=== PATIENT | female | born 1945 | race Caucasian/White ===

== ENCOUNTER → 2024-05-31 13:05 | Outpatient (REF) | payer MEDICARE, OTHER, SELFPAY | LOC: RAD 13:05 | PROVIDERS: ATTENDING PHYSICIAN Internal Medicine Gastroenterology; FAMILY PHYSICIAN Family Medicine | DX: K58.0 Irritable bowel syndrome with diarrhea (principal) | CPT/HCPCS: 74018 ==

== ENCOUNTER → 2024-06-01 11:43 | Outpatient (REF) | payer MEDICARE, OTHER, SELFPAY | LOC: REG 11:43 | PROVIDERS: ATTENDING PHYSICIAN Internal Medicine Gastroenterology | DX: K58.0 Irritable bowel syndrome with diarrhea (principal) | CPT/HCPCS: 82653; 82705; 87045; 87046; 87324; 87328; 87329; 87427; 87449; 89055 ==

== ENCOUNTER 2024-06-03 14:57 | Observation (INO) | payer MEDICARE, OTHER, SELFPAY ==
[2024-06-03] VITALS (10 sets, daily range): BP systolic 74–116; BP diastolic 47–94; PULSE 64–81; BMI 16.6; BMI 16.7
[2024-06-03] MEDS: NSS 1000 IV (11:55)
[2024-06-03 12:02] LABS: % Basophils 0.4 % (0-2); % Eosinophils 0.1 % (0-6); % Immature Granulocytes 0.4 % (0-0.5); % Lymphocytes 14.9 % (20.5-51.1); % Monocytes 6.5 % (1.7-9.3); % Neutrophils 77.7 % (42.2-75.2); Absolute Monocytes 0.4 10^3/uL (0.1-0.6); Absolute Neutrophils 5.3 10^3/uL (1.4-6.5); Hematocrit 36.6 % (37.0-47.0); Hemoglobin 12.9 g/dL (12.0-16.0); Mean Corp Hgb Conc. 35.2 g/dL (33.0-37.0); Mean Corpuscular Hgb 33.4 pg (27.0-31.0); Mean Corpuscular Volume 94.8 fL (81.0-99.0); Mean Platelet Volume 9.8 fL (7.4-10.4); Nucleated Red Blood Cells % 0 %; Platelet Count 236 10^3/uL (130-400); Red Blood Cell Count 3.86 10^6/uL (4.20-5.40); Red Cell Dist. Width 12.3 % (11.5-14.5); White Blood Cell Count 6.8 10^3/uL (4.8-10.8)
[2024-06-03 12:23] LABS: Lactic Acid 0.8 mmol/L (0.7-2.0)
[2024-06-03 12:26] LABS: ALT (SGPT) < 10 U/L (0-35); AST (SGOT) 20 U/L (14-36); Albumin 4.1 g/dl (3.5-5.0); Alkaline Phosphatase 53 U/L (38-126); Blood Urea Nitrogen 17 mg/dl (7-17); Calcium 9.3 mg/dl (8.4-10.2); Carbon Dioxide 21 mmol/L (22-30); Chloride 102 mmol/L (98-107); Estimated Creatinine Clearance 34 ml/min; Glucose 76 mg/dl (70-99); Lipase 119 U/L (23-300); Potassium 3.6 mmol/L (3.5-5.1); Sodium 139 mmol/L (135-145); Total Bilirubin 0.6 mg/dl (0.2-1.3); Total Protein 6.5 g/dl (6.3-8.2); eGFR 57.66
--- NOTE | 2024-06-03 13:52 | ED.GENMED ---
History of Present Illness
General
Chief Complaint: Abdominal Symptoms
Source: patient, spouse and family
Time Seen by Provider: 06/03/24 11:01
History of Present Illness
History of Present Illness:
This 79-year-old female presents with her and brother reporting persistent and constant diarrhea over the last 2 weeks. Patient is seen in [facility] emergency department x 2. She has had a CT and plain films. She also saw
gastroenterology and had stool studies that are so far negative. Patient has lost 10 to 20 pounds and is not eating anything over the last 1 week. She has not drinking. Family states she actually was so weak she could not get up and fell once.
No injuries. She does report her stools have been very dark. Denies abdominal pain. No nausea or vomiting. Has had a little bit of loss of appetite but is afraid to eat because it induces such severe diarrhea. No recent antibiotic use. No
recent travel. No sick contacts
Past History
Past History
ED Past Medical History: Psychiatric (Anxiety) and Other (Mild dementia)
ED Past Surgical History: None
Social History
Tobacco: Non-smoker
Alcohol: None
Personal:
Living: with family
Phy Exam
Physical Exam
Physical Exam:
CONSTITUTIONAL Patient alert and oriented to person, place. Well-appearing. Vital signs reviewed.
HEAD atraumatic, normocephalic.
EYES eyelids normal to inspection, Pupils equally round and reactive to light, Extraocular muscles intact, Conjunctiva normal, Sclera normal.
NECK normal range of motion, Trachea midline, no jugular venous distention.
RESPIRATORY CHEST No respiratory distress noted, Chest expansion equal, Bilateral breath sounds clear.
CARDIOVASCULAR regular rate and rhythm, Heart sounds normal.
ABDOMEN abdomen nontender, Bowel sounds normal. No distention.
BACK normal inspection, no obvious deformities
UPPER EXTREMITY range of motion normal, Motor strength normal, no cyanosis, no edema.
LOWER EXTREMITY range of motion normal, Motor strength normal, no cyanosis, no edema.
NEURO Speech normal, No focal motor deficits, Nicci coma scale 15, Cranial Nerves intact to screening exam.
SKIN skin warm, dry, and normal in color.
Course
Orders/Labs/Results
Orders:
Orders
06/03/24 11:28
Urinalysis Reflex To Culture Urgent
06/03/24 11:29
Orthostatic VS- Treatment ONCE
0.9% Sodium Chloride 1000 ml [Nss] 1,000 ml IV BOLUS
06/03/24 11:50
Complete Blood Count/With Diff Urgent
Comprehensive Metabolic Panel Urgent
Lactic Acid Urgent
Lipase Urgent
Abnormal Lab Results
06/03/24
11:50
RBC 3.86 L 10^6/uL
(4.20-5.40)
Hct 36.6 L %
(37.0-47.0)
MCH 33.4 H pg
(27.0-31.0)
Absolute Lymphs (auto) 1.0 L 10^3/uL
(1.2-3.4)
Neutrophils % 77.7 H %
(42.2-75.2)
Lymphocytes % 14.9 L %
(20.5-51.1)
Carbon Dioxide 21 L mmol/L
(22-30)
06/03/24 11:50
06/03/24 11:50
Vital Signs
Initial and Last Documented VS:
Initial Vital Signs
Temp Pulse Resp BP Pulse Ox
97.7 F 86 17 116/82 97
06/03/24 09:55 06/03/24 09:55 06/03/24 09:55 06/03/24 09:55 06/03/24 09:55
Last Documented Vital Signs
Temp Pulse Resp BP Pulse Ox
97.7 F 64 20 115/94 99
06/03/24 09:55 06/03/24 13:45 06/03/24 12:00 06/03/24 13:00 06/03/24 13:45
MDM/Problems Addressed
MDM/Problems Addressed:
Diarrhea, dehydration, orthostasis, weakness
*Pulse Oximetry
Patient hypoxic: no
*Critical Care Note
Total Time (30-74mins, 75-104mins- exclusive of procedures): Not Applicable
Data Reviewed
Review of Other/Old Records Reveals: Labs (Outpatient stool culture reviewed and thus far neg) and Radiology Studies (Patient brought her outpatient CT report that was reviewed)
Source: patient and family
Prescriptions/Medications Considered But Not Given:
Considered antibiotics but so far cultures of the stool negative
Patient Management
Discussion with other providers: Hospitalist
Escalation/DeEscalation of care consider admission/obs:
Persistence of symptoms. Patient presents with persistent diarrhea. Now does drop her blood pressure when she stands and is weak. Given the persistence and recurrent visits to the emergency department, admit for close monitoring, IV fluids and GI
consultation.
ED Attending Note
-
Portions of this chart may have been created with voice recognition software.� Occasional wrong word or��sound alike� substitutions may have occurred due to the inherent limitations of voice recognition software.
Discharge Plan
Departure
Patient Disposition: Admit
Date of Disposition: 06/03/24
Time of Disposition: 13:53
Admit to: Med/Surg
Presentation/result/management discussed w/ accepting MD/DO: Hospitalist
Discharge Problem:
Diarrhea, Orthostasis, Weakness
Prescriptions:
No Action
gabapentin 100 MG capsule
300 mg PO HS
risedronate 35 MG tablet,delayed release (DR/EC)
35 mg PO Q7D
Rx Instructions:
takes every tuesday AM
ferrous sulfate [FeroSul] 325 MG tablet
325 mg PO DAILY
Align
0 PO DAILY
donepezil [Aricept] 10 mg Tablet
10 mg PO DAILY
Rx Instructions:
in AM
famotidine 20 mg Tablet
20 mg PO BID Qty: 60 0RF
dexamethasone 4 mg tablet
4 mg PO DIRECTED Qty: 14 0RF
Rx Instructions:
4 mg tab 3x daily X2-day, then 4 mg bid X2 day, then 4 mg daily X2 days,then 1/2 tablet daily x2 days, then stop
Referrals:
Mari Chatterjee DO [Family Provider] -
Interventions
Interventions:
*Risk Screen - Suicide Last Done: 06/03/24 09:54
*General Assessment Last Done: 06/03/24 09:54
*Neglect/Abuse Screening Last Done: 06/03/24 09:54
ED- Fall Risk Assessment Last Done: 06/03/24 12:00
*ED COVID-19 Vaccine History Last Done: 06/03/24 09:54
HJ-Cejxxb-Zxugrpreva Assessment Last Done: 06/03/24 11:39
Discharge Date and Time
Print Language: SALVADOREAN
--- NOTE | 2024-06-03 14:29 | HPS.HSE ---
Family Physician
-
Family Physician: Mari Chatterjee
Chief Complaint
-
Persistent diarrhea
History of Present Illness
Pleasant 79-year-old female with history osteoporosis, IBS, mild dementia who lives at home with her , this is her third visit to the ER in the middle of couple of weeks for persistent diarrhea.
She is awake, alert and oriented x 3 and able to provide detailed information her was here earlier in the left, she has been in [facility] emergency department couple of times and had extensive workup including CT abdominal pelvis and plain
x-rays and stool workup then several negative. Also she has been following up with retail interior designer locally.
Admit to diarrhea is persistent throughout the day without any warning sign like any cramping pain or any nausea or vomiting or any fever or chill or cough or congestion according to the patient she spent most of the time in the bathroom.
Denies taking any stool softener or laxative.
Afraid to eat anything because go to ER right away, but the stool is greenish and dark in color.
Denies any fever or chill or cough or congestion.
Denies any recent travel or sick contact or camping and ate on home well water denies sick contact or antibiotic intake or change in medications.
In the ER she looks dry and lethargic look like pressure dropped at the try to get her out, given some fluid and chest pressure is better, she she is not in distress.
Patient admits she did have this issue for a few years including October 2022 the Last Colonoscopy Was 3 Years Ago According to the Patient Basically Was Negative.
Denies Any Bleeding Event or Taking Any NSAIDs.
Medical History
Past Medical History
Past Medical History: Reports Other
Additional Past Medical History:
Past medical history reviewed:
Disorder
Mild dementia
Osteopenia osteoporosis
IBS
Social history: Lives with her , denies smoking and drinking white wine few nights a week.
Family history: Reviewed and noncontributory
Past Surgical History: Reports Other
Social History
Unable to obtain full social history at this time due to: Other
Family History
Family History: Other
Allergies / Home Medications
Allergies reflects when Allergies were last updated in [facility].
Home Medications with original date entered in [facility]
Allergy/Medication List:
Allergies
Allergy/AdvReac Type Severity Reaction Status Date / Time
tetracycline [Tetracycline] Allergy yeast Verified 06/03/24 09:54
infection
Home Medications
risedronate 35 mg tablet,delayed release 35 mg PO TU OSTEOPOROSIS 08/15/20
donepezil 10 mg tablet (Aricept) 10 mg PO DAILY MEMORY 07/11/23
cyanocobalamin (vitamin B-12) 1,000 mcg tablet 3,000 mcg PO DAILY 06/03/24
gabapentin 300 mg capsule 300 mg PO HS 06/03/24
memantine 10 mg tablet 10 mg PO BID 06/03/24
midodrine 10 mg tablet 10 mg PO BID@0800,1200 06/03/24
primidone 50 mg tablet 50 mg PO HS 06/03/24
turmeric 400 mg capsule 1,500 mg PO DAILY 06/03/24
Review of Systems
-
A 12 point ROS was completed and negative except as noted: Yes
Physical Exam
Vital Signs
Vital Signs
Temp Pulse Resp BP Pulse Ox
97.7 F 64 20 115/94 99
06/03/24 09:55 06/03/24 14:00 06/03/24 12:00 06/03/24 13:00 06/03/24 14:00
Physical exam:
General: Awake, alert and oriented x3, lethargic and dry looking but not in distress and holds appropriate conversation.
HEENT: No active discharge, ecchymosis or bruising, moist lips, tongue and mucous membrane.
Eyes: No discharge or red conjunctiva, no nystagmus, pupils are reactive and equal
Neck:Supple, no JVD no bruit no goiter.
Respiratory: Normal AP contour and diameter, normal chest wall movement, normal respiratory effort, no respiratory distress,
Lungs: Good air entry bilaterally, no wheezing or rhonchi, no rales or crackles
Heart: S1, S2 regular, normal rate, no added sound.
Gastrointestinal: Positive bowel sounds, soft, nontender, no guarding or rigidity or organomegaly
Musculoskeletal: , no chest wall abnormality or tenderness. All joints and extremities have good range of motion, no muscle tenderness or any joint swelling or tenderness.
Extremities: No pitting edema, good peripheral pulses, good range of motion
Skin: Warm and dry, no ulceration, normal color.
Neurological: Awake, alert and oriented x3, no facial droop, speech clear and comprehensive, good muscle tone, normal sensory and motor function
Psychiatric: Normal mood, normal thought and judgment, normal affect,
Physical Exam
Respiratory: Other
Laboratory Results
-
06/03/24 11:50
06/03/24 11:50
Laboratory Results
Lactic Acid 0.8 mmol/L (0.7-2.0) 06/03/24 11:50
Total Bilirubin 0.6 mg/dl (0.2-1.3) 06/03/24 11:50
AST 20 U/L (14-36) 06/03/24 11:50
ALT < 10 U/L (0-35) 06/03/24 11:50
Alkaline Phosphatase 53 U/L (38-126) 06/03/24 11:50
Lipase 119 U/L (23-300) 06/03/24 11:50
Data Reviewed
-
Lab Data: Labs Reviewed by me and Discussed with Patient
Old Records: Reviewed
Impression/Plan
-
IMPRESSION:
79-year-old female presented to our ER as this is her third visit to ER in the last week for the same issue suppressant diuretic. Went to [facility] emergency department already had extensive workup she had a copy of the workup including CT showed
no abnormalities.
Persistent diarrhea, infectious versus functional diarrhea while other causes may need to be considered include inflammatory bowel disease. Had colonoscopy 3 years ago therefore hypersecretory polyps possibility but unlikely.
Dehydration
Hypotension, resolved
Mild metabolic acidosis
History of IBS
History of orthostatic hypotension
Mild dementia
PLAN:
Full liquid diet and advance as tolerated
Ringer lactate
Orthostatic vital sign check
Repeat stool workup including C. difficile, ova and parasite,
GI consult and defer further workup to GI
Continue her midodrine
Continue Namenda
Continue gabapentin at the bedside
Aricept
Cholesterol hydration.
All discussed with the patient and expressed understanding
Discussed with the ER physician
CODE STATUS full code
DVT prophylaxis Lovenox
[2024-06-03 16:48] LABS: Magnesium 1.9 mg/dl (1.6-2.3)
[2024-06-03] MEDS: LR 1000 IV (16:56)
[2024-06-03] MEDS: LOVENOX 40 MG SC (18:13)
[2024-06-03] MEDS: NAMENDA 10 MG PO (20:56)
[2024-06-03] MEDS: MYSOLINE 50 MG PO (20:56)
[2024-06-03] MEDS: NEURONTIN 300 MG PO (20:56)
[2024-06-04] MEDS: LR 1000 IV ×2 (03:05→12:26)
--- NOTE | 2024-06-04 06:52 | CON.GI ---
Addendum entered and electronically signed by Arielle Gandara MD 06/04/24 16:23:
I saw and examined the patient.
The [employer] or PA's note was reviewed and I agree with the note.
Comment:
Pt with a history of IBS, fatty liver, intermittent diarrhea since November who is followed in our office and has had a negative workup at other outside institutions including CT scans, and abdominal imaging. She has had negative celiac workup and
negative biopsies for microscopic colitis. She does not have any acute exacerbation of her symptoms but states that it occurs after she eats. She does seem forgetful when answering questions. Does eat cheese and hasn't modified dieet
abd: soft, nontender
impression:
chronic diarrhea: ?functional
plan:
xray done
stool studies
quantify stool
lactose free diet
can try trials of imodium, cholestyramine or xifaxin depending on above results
Original Note:
Consultation
-
Date/Time Consultation Requested: 06/03/24 1400
Date/Time Consultation Performed: 06/04/24 0700
Requesting Provider: Gurwinder Beebe MD
Performing Provider: TESSIE Pineda, Arielle Gandara MD
Reason for Consultation: diarrhea
Medical History
Chief Complaint / HPI
Chief Complaint: diarrhea
History of Present Illness:
Pt is a 79yo with hx IBS, depression, osteoporosis, hypercholesterolemia, colon polyps, fatty liver with persistent diarrhea for last 2 weeks and may have had intermittent diarrhea since November. She has been at [facility] ER x [address] and abd
imaging. Prior review of chart with work up with Dr. Hinojosa in past with neg celiac and neg bx for microscopic colitis. She has been treated with Xifaxan in past with improvement. She denies any recent travel abx or sick contacts. she was
recently seen by Dr. Hinojosa 05/31 for similar symptoms and recommended stool studies, abd Xray, pancreatic elastase and fecal fat. She now presents with worsening diarrhea for evaluation.
In reviewing with patient admits to diarrhea in past. She recall worsening symptom a few months ago then last 2 weeks worse. She states + BM's after each meal and some night stools though no stools last PM per nursing. She denies any diet
change, travel, abx or sick contacts. Prior colonoscopy 2021 with neg microscopic colitis. She denies dysphagia, GERd, vomiting, abdominal pain, blood or black in stools. + wt loss last 2 weeks with diarrhea.
Past Medical History
Past Medical History: Hypercholesterolemia, Psychiatric (mild dementia, anxiety, depression, osteoposis, colon polyps, osteoporosis, anemia ) and Other (osteoporosis, IBS, scoliosis, diverticulosis, anemia, fatty liver, colon polyps, )
Past Surgical History: Other (finger surgery, cyst behind knee removal)
Social History
Tobacco: Non-Smoker
Alcohol: Daily (1 drink daily)
Drug: None
Personal:
Living: With Family
Employment: Retired
Family History
Family History: Other (no family hx colon CA or polyps)
Allergies / Home Medications
Allergy/AdvReac Type Severity Reaction Status Date / Time
tetracycline [Tetracycline] Allergy yeast Verified 06/03/24 09:54
infection
�Medication �Instructions �Recorded
risedronate 35 mg tablet,delayed 35 mg PO TU OSTEOPOROSIS 08/15/20
release
donepezil 10 mg tablet (Aricept) 10 mg PO DAILY MEMORY 07/11/23
cyanocobalamin (vitamin B-12) 3,000 mcg PO DAILY 06/03/24
1,000 mcg tablet
gabapentin 300 mg capsule 300 mg PO HS 06/03/24
memantine 10 mg tablet 10 mg PO BID 06/03/24
midodrine 10 mg tablet 10 mg PO BID@0800,1200 06/03/24
primidone 50 mg tablet 50 mg PO HS 06/03/24
turmeric 400 mg capsule 1,500 mg PO DAILY 06/03/24
Review of Systems
-
Unable to obtain full review of systems at this time due to: Dementia
History Source: Patient
Constitutional: Reports Weight Loss (with diarrhea ) and Other (feeling cold)
EENT: Reports No Symptoms
Respiratory: Reports No Symptoms
Cardiac: Reports No Symptoms
Abdomen/GI: Reports Diarrhea
: Reports No Symptoms
Musculoskeletal: Reports No Symptoms
Skin: Reports No Symptoms
Neurological: Reports Weakness
Endocrine: Reports No Symptoms
Hematologic/Lymphatic: Reports No Symptoms
Vital Signs
Temp Pulse Resp BP Pulse Ox
98.2 F 68 16 113/65 98
06/03/24 23:24 06/03/24 23:24 06/03/24 23:24 06/03/24 23:24 06/03/24 23:24
Physical Exam
Exam
General: Well Developed, Well Nourished and No Apparent Distress
HEENT: Normocephalic and Anicteric
Respiratory: Clear
Cardiac: Regular Rhythm
GI: Soft and Non Distended
Musculoskeletal: No Clubbing and No Cyanosis
Skin: Warm and Dry
Neuro: Awake, Alert and AO x 3
Psych: Calm
Results
WBC 6.8 10^3/uL (4.8-10.8) 06/03/24 11:50
Hgb 12.9 g/dL (12.0-16.0) 06/03/24 11:50
Hct 36.6 % (37.0-47.0) L 06/03/24 11:50
MCV 94.8 fL (81.0-99.0) 06/03/24 11:50
Plt Count 236 10^3/uL (130-400) 06/03/24 11:50
Absolute Neuts (auto) 5.3 10^3/uL (1.4-6.5) 06/03/24 11:50
Sodium 139 mmol/L (135-145) 06/03/24 11:50
Potassium 3.6 mmol/L (3.5-5.1) 06/03/24 11:50
Chloride 102 mmol/L (98-107) 06/03/24 11:50
Carbon Dioxide 21 mmol/L (22-30) L 06/03/24 11:50
BUN 17 mg/dl (7-17) 06/03/24 11:50
Creatinine 1.0 mg/dL (0.6-1.0) 06/03/24 11:50
Calcium 9.3 mg/dl (8.4-10.2) 06/03/24 11:50
Total Bilirubin 0.6 mg/dl (0.2-1.3) 06/03/24 11:50
AST 20 U/L (14-36) 06/03/24 11:50
ALT < 10 U/L (0-35) 06/03/24 11:50
Alkaline Phosphatase 53 U/L (38-126) 06/03/24 11:50
Lipase 119 U/L (23-300) 06/03/24 11:50
Diagnostic Image Results:
05/31/24 abd X ray
1. Mild air distention of most of the colon.
2. Contrast material in the descending colon, sigmoid colon, and rectum.
3. Severe diverticulosis in the sigmoid colon.
4. Severe multilevel discogenic degenerative disease in the lumbar spin
Prior GI Procedures:
EGD: 08/2022- [facility] - No gross lesions in the entire esophagus.
- Z-line regular, 38 cm from the incisors.
- Small hiatal hernia.
- Erythematous mucosa in the antrum. Biopsied.
- Normal examined duodenum. Biopsied.
bx neg metaplasia, neg H pylori no lymphcytes
Colonoscopy: 08/2022 [facility] - The examined portion of the ileum was normal.
- Tortuous colon.
- Normal mucosa in the entire examined colon. Biopsied.
- Two 1 to 2 mm polyps in the rectum, removed with a
jumbo cold forceps. Resected and retrieved.
- Diverticulosis in the sigmoid colon.
bx HP polyp melanosis coli, neg acute or colangenous colitis
Assessment / Plan
-
Pt is a 79yo with hx IBS, depression, osteoporosis, hypercholesterolemia, colon polyps with persistent diarrhea for last 2 weeks and may have had intermittent diarrhea since November. She has been at [facility] ER x [address] and abd imaging.
Prior review of chart with work up with Dr. Hinojosa in past with neg celiac and neg bx for microscopic colitis. She has been treated with Xifaxan in past with improvement. She denies any recent travel abx or sick contacts. she was recently
seen by Dr. Hinojosa 05/31 for similar symptoms and recommended stool studies, abd Xray and pancreatic elastase and fecal fat. She now presents with worsening diarrhea for evaluation.
-diarrhea
-hx IBS diarrhea with prior improvement with Xifaxan
- hx colon polyp
-hypokalemia
other med problems:
-depression
-osteoporosis
-hypercholesterolemia
-colon polyps
PLAN:
Etiology of diarrhea related to IBS-D as noted in past , infectious etiology, panc insufficiency vs other
await stool studies
trend diarrhea and output
abd film as noted
replete K per hospitalist
increased to low residue/low lactose diet
if stool neg consider trial of Xifaxan with improvement in past
reviewed with spouse no new medication or diet change
will follow
-
-
Thank you for consultation and allowing me to participate in the patient's care. Please call the cleaning validation consultant GI physician during the after hours with any questions or concerns.
[2024-06-04 07:40] VITALS: BP 118/59
[2024-06-04 08:13] LABS: % Basophils 0.3 % (0-2); % Eosinophils 0.6 % (0-6); % Immature Granulocytes 0.5 % (0-0.5); % Lymphocytes 20.1 % (20.5-51.1); % Monocytes 6.8 % (1.7-9.3); % Neutrophils 71.7 % (42.2-75.2); Absolute Lymphocytes 1.2 10^3/uL (1.2-3.4); Absolute Monocytes 0.4 10^3/uL (0.1-0.6); Absolute Neutrophils 4.4 10^3/uL (1.4-6.5); Hematocrit 35.1 % (37.0-47.0); Hemoglobin 12.4 g/dL (12.0-16.0); Mean Corp Hgb Conc. 35.3 g/dL (33.0-37.0); Mean Corpuscular Hgb 33.2 pg (27.0-31.0); Mean Corpuscular Volume 93.9 fL (81.0-99.0); Mean Platelet Volume 10.3 fL (7.4-10.4); Nucleated Red Blood Cells % 0 %; Platelet Count 233 10^3/uL (130-400); Red Blood Cell Count 3.74 10^6/uL (4.20-5.40); Red Cell Dist. Width 12.2 % (11.5-14.5); White Blood Cell Count 6.2 10^3/uL (4.8-10.8)
--- NOTE | 2024-06-04 08:31 | W.PN.HOSP.TC ---
Today's Communication/Plan
-
Replace and monitor potassium
Appreciate GI
Assessment / Plan
Assessment / Plan
Physical Exam
General: Not in acute distress
HEENT: Normocephalic
Neck: Supple
Lungs: Clear to Auscultation Bilaterally
Heart: S1, S2 regular, normal rate
Gastrointestinal: Positive bowel sounds, soft, nontender
Extremities: No cyanosis
Skin: Warm and dry
Neurological: Awake, alert and oriented x3, no facial droop, speech clear and comprehensive, good muscle tone, normal sensory and motor function
Psychiatric: Calm

Assessment/Plan
IMPRESSION:
79-year-old female presented to our ER with persistent diarrhea.
Persistent diarrhea, infectious versus functional diarrhea while other causes may need to be considered include inflammatory bowel disease. Had colonoscopy 3 years ago therefore hypersecretory polyps possibility but unlikely.
Dehydration
Hypokalemia
Hypotension, resolved
Mild metabolic acidosis
History of IBS
History of orthostatic hypotension
Mild dementia
PLAN:
Patient has been having persistent diarrhea for the last 2-week, had a couple visit to different emergeny rooms, although workup is negative.
Replace and monitor potassium
Full liquid diet and advance as tolerated
IV Fluids
Orthostatic vital sign check
Repeat stool workup including C. difficile, ova and parasite,
GI consulted, appreciate evaluation and recommendations
Continue her midodrine
Continue Namenda
Continue gabapentin at the bedside
Aricept
CODE STATUS full code
DVT prophylaxis Lovenox
Anticipated Discharge: 24 - 48 hours
Subjective/Interval History
-
Date of Service: June 04, 2024
Patient was seen and examined. She reported no new symptoms since she came in, still having diarrhea.
Objective Data
-
Labs:
Laboratory Results
06/04/24
07:06
WBC 6.2
Hgb 12.4
Hct 35.1 L
Plt Count 233
Sodium Pending
Potassium Pending
Chloride Pending
Carbon Dioxide Pending
BUN Pending
Creatinine Pending
Glucose Pending
Calcium Pending
Vital Signs:
Vital Signs
Temp Pulse Resp BP Pulse Ox
98.2 F 68 16 113/65 98
06/03/24 23:24 06/03/24 23:24 06/03/24 23:24 06/03/24 23:24 06/03/24 23:24
I&O
06/03/24 06/04/24 06/05/24
06:59 06:59 06:59
Intake Total 1200 / 1200
Balance 1200 / 1200
[2024-06-04 08:56] LABS: Blood Urea Nitrogen 10 mg/dl (7-17); Calcium 8.7 mg/dl (8.4-10.2); Carbon Dioxide 27 mmol/L (22-30); Chloride 103 mmol/L (98-107); Estimated Creatinine Clearance 57 ml/min; Glucose 77 mg/dl (70-99); Magnesium 1.7 mg/dl (1.6-2.3); Potassium 3.1 mmol/L (3.5-5.1); Sodium 137 mmol/L (135-145); eGFR > 60.00
[2024-06-04] MEDS: NAMENDA 10 MG PO ×2 (09:02→19:09)
[2024-06-04] MEDS: ARICEPT 10 MG PO (09:02)
[2024-06-04] MEDS: ProAmatine 10 MG PO ×2 (09:02→12:37)
[2024-06-04 09:48] LABS: Vitamin B12 > 1000 pg/ml (239-931)
[2024-06-04 13:13] VITALS: BMI 16.7
[2024-06-04] MEDS: KCL 40 MEQ PO (14:08)
--- NOTE | 2024-06-04 14:19 | CM ---
Reviewed the chart notes and spoke with the patient in the room. The patient is being admitted under observational status [facility] letter provided and explained. The patient had no questions with regards to the letter.
The patient resides in an independent apartment at [facility]. The patient reports no DME/VN/SNF. The patient did not know which pharmacy she would use for short term medications, usually does mail order. CM continues to be available
to patient/family and is monitoring medical plan for needs at discharge.
Plan: Discharge to home when medically stable. No needs anticipated.
[2024-06-04 15:35] VITALS: BP 126/70
[2024-06-04] MEDS: LOVENOX 40 MG SC (18:06)
[2024-06-04 18:24] LABS: Blood Urea Nitrogen 6 mg/dl (7-17); Calcium 8.8 mg/dl (8.4-10.2); Carbon Dioxide 27 mmol/L (22-30); Chloride 102 mmol/L (98-107); Estimated Creatinine Clearance 57 ml/min; Glucose 135 mg/dl (70-99); Potassium 3.3 mmol/L (3.5-5.1); Sodium 137 mmol/L (135-145); eGFR > 60.00
[2024-06-04 19:55] LABS: Hepatitis C Antibody Negative (Negative)
[2024-06-04 21:39] LABS: Urine Albumin Negative (Neg - Trace); Urine Bilirubin Negative (Negative); Urine Character Clear (Clear); Urine Color Yellow; Urine Glucose Negative (Negative); Urine Ketone 2+ (Negative); Urine Leukocyte 2+ (Negative); Urine Nitrite Negative (Negative); Urine Occult Blood Negative (Negative); Urine Urobilinogen Negative (Neg - 1+)
[2024-06-04 21:45] LABS: Urine Bacteria Few (Negative); Urine Red Blood Cell 0-2 /HPF (0-2)
[2024-06-04] MEDS: NEURONTIN 300 MG PO (21:47)
[2024-06-04] MEDS: MYSOLINE 50 MG PO (21:49)
[2024-06-04 22:52] VITALS: BP 127/71; BP 131/73; BP 93/54; PULSE 67; PULSE 69; PULSE 82
[2024-06-05] VITALS (7 sets, daily range): BP systolic 85–142; BP diastolic 54–76; PULSE 63–77
[2024-06-05] MEDS: ProAmatine 10 MG PO ×2 (08:32→13:37)
[2024-06-05] MEDS: NAMENDA 10 MG PO ×2 (08:33→20:30)
[2024-06-05] MEDS: ARICEPT 10 MG PO (08:33)
[2024-06-05 08:44] LABS: Hematocrit 34.4 % (37.0-47.0); Hemoglobin 12.4 g/dL (12.0-16.0); Mean Corpuscular Hgb 34.3 pg (27.0-31.0); Mean Platelet Volume 9.9 fL (7.4-10.4); Platelet Count 216 10^3/uL (130-400); Red Blood Cell Count 3.62 10^6/uL (4.20-5.40); White Blood Cell Count 4.4 10^3/uL (4.8-10.8)
--- NOTE | 2024-06-05 08:54 | W.PN.GI.CBS2 ---
Today's Communication / Plan
-
Started questran BID
Remeron QHS
GI will sign off, OP FU with Dr Hinojosa
Assessment / Plan
-
Pt is a 79yo with hx IBS, depression, osteoporosis, hypercholesterolemia, colon polyps with persistent diarrhea for last 2 weeks and may have had intermittent diarrhea since November. She has been at [facility] x [address] and abd imaging.
Prior review of chart with work up with Dr. Hinojosa in past with neg celiac and neg bx for microscopic colitis. She has been treated with Xifaxan in past with improvement. She denies any recent travel abx or sick contacts. she was recently
seen by Dr. Hinojosa 05/31 for similar symptoms and recommended stool studies, abd Xray and pancreatic elastase and fecal fat. She now presents with worsening diarrhea for evaluation.
Impression
- Functional diarrhea
Stool studies negative
EGD/colon done in 2021 without cause found
- hx colon polyp
- hypokalemia
- dementia
-depression
-osteoporosis
-hypercholesterolemia
-colon polyps
Recommendations
- AXR without bowel obstruction
- Start questran BID
- C/w low residue diet, add oral supplements
- Start remeron QHS for appetite, component of poor appetite may be related to dementia
At this juncture no new recommendations, GI will sign off please call for questions
She can FU with Dr Hinojosa outpatient basis.
Subjective
Subjective
Date of Service: June 05, 2024
She denies abd pain, nausea/vomiting. She ordered toast and coffee this AM for breakfast
Objective
Data Reviewed
Laboratory Data:
Laboratory Results
06/05/24 08:19
Laboratory Results
Magnesium 1.7 mg/dl (1.6-2.3) 06/04/24 07:06
Total Bilirubin 0.6 mg/dl (0.2-1.3) 06/03/24 11:50
AST 20 U/L (14-36) 06/03/24 11:50
ALT < 10 U/L (0-35) 06/03/24 11:50
Alkaline Phosphatase 53 U/L (38-126) 06/03/24 11:50
Lipase 119 U/L (23-300) 06/03/24 11:50
Vital Signs and I&O:
Vital Signs
Temp Pulse Resp BP Pulse Ox
97.9 F 67 16 113/59 98
06/05/24 07:19 06/05/24 08:32 06/05/24 07:19 06/05/24 08:32 06/05/24 07:19
I&O
06/04/24 06/05/24 06/06/24
06:59 06:59 06:59
Intake Total 1200 / 1200 600 / 600
Output Total 600 / 600
Balance 1200 / 1200 0 / 0
Physical Exam
Physical Exam
GEN: No acute distress, conversant, pleasant
HEENT: anicteric, extraocular movements intact, clear oropharynx without exudates
GI: soft, non-distended, not tender to palpation, normal active bowel sounds, no hepatosplenomegaly
EXT: warm, well perfused, no edema bilaterally
NEURO: AAOx2 confused, non-focal
[2024-06-05 09:34] LABS: ALT (SGPT) < 10 U/L (0-35); AST (SGOT) 21 U/L (14-36); Albumin 3.6 g/dl (3.5-5.0); Alkaline Phosphatase 51 U/L (38-126); Blood Urea Nitrogen 3 mg/dl (7-17); Calcium 8.8 mg/dl (8.4-10.2); Carbon Dioxide 30 mmol/L (22-30); Chloride 99 mmol/L (98-107); Estimated Creatinine Clearance 57 ml/min; Glucose 87 mg/dl (70-99); Magnesium 1.6 mg/dl (1.6-2.3); Potassium 3.5 mmol/L (3.5-5.1); Sodium 137 mmol/L (135-145); Total Bilirubin 0.6 mg/dl (0.2-1.3); Total Protein 5.9 g/dl (6.3-8.2); eGFR > 60.00
[2024-06-05] MEDS: QUESTRAN 4 GRAM PO ×2 (10:19→20:31)
--- NOTE | 2024-06-05 13:27 | W.PN.HOSP.TC ---
Today's Communication/Plan
-
PT/OT
Placement
Medications for diarrhea and appetite started
Spoke to patient's today
Assessment / Plan
Assessment / Plan
Physical Exam
General: Not in acute distress
HEENT: Normocephalic
Neck: Supple
Lungs: Clear to Auscultation Bilaterally
Heart: S1, S2 regular, normal rate
Gastrointestinal: Positive bowel sounds, soft, nontender
Extremities: No cyanosis
Skin: Warm and dry
Neurological: Awake, alert and oriented x3, no facial droop, speech clear and comprehensive, good muscle tone, normal sensory and motor function
Psychiatric: Calm

Assessment/Plan
IMPRESSION:
79-year-old female presented to our ER with persistent diarrhea.
Functional Diarrhea
History of colon polyps
Hypercholesterolemia
Poor Appetite
Dehydration
Hypokalemia
Hypotension, resolved
Mild metabolic acidosis
History of IBS
History of orthostatic hypotension
Mild dementia
Osteoporosis
Depression
PLAN:
Patient has been having persistent diarrhea for the last 2-week, had a couple visit to different emergeny rooms, although workup is negative.
Replace and monitor potassium
Full liquid diet and advance as tolerated
IV Fluids
Orthostatic vital sign check
Repeat stool workup including C. difficile, ova and parasite,
GI consulted, appreciate evaluation and recommendations
Abdominal X-Ray showed no bowel obstruction
Started questran BID
Remeron QHS
Continue with low residue diet, Ensure High Protein TID added
Continue her midodrine
Continue Namenda
Continue gabapentin
Aricept
CODE STATUS full code
DVT prophylaxis Lovenox
Anticipated Discharge: 24 - 48 hours
Subjective/Interval History
-
Date of Service: June 05, 2024
Patient was seen and examined. She denied any new symptoms or complaints when she was seen today, but later today, her said that she had more diarrhea after lunch.
Objective Data
-
Labs:
Laboratory Results
06/05/24
08:19
WBC 4.4 L
Hgb 12.4
Hct 34.4 L
Plt Count 216
Sodium 137
Potassium 3.5
Chloride 99
Carbon Dioxide 30
BUN 3 L
Creatinine 0.5 L
Glucose 87
Calcium 8.8
Total Bilirubin 0.6
AST 21
ALT < 10
Alkaline Phosphatase 51
Vital Signs:
Vital Signs
Temp Pulse Resp BP Pulse Ox
97.9 F 67 16 113/59 98
06/05/24 07:19 06/05/24 08:32 06/05/24 07:19 06/05/24 08:32 06/05/24 07:19
I&O
06/04/24 06/05/24 06/06/24
06:59 06:59 06:59
Intake Total 1200 / 1200 600 / 600
Output Total 600 / 600
Balance 1200 / 1200 0 / 0
--- NOTE | 2024-06-05 16:10 | CM ---
Reviewed the chart notes. PT evaluation pending. Patient ambulating in hallway ad ge. CM continues to be available to patient/family and is monitoring medical plan for needs at discharge.
Plan: Discharge to home when medically stable. No needs identified at this time.
[2024-06-05] MEDS: LOVENOX 40 MG SC (18:45)
[2024-06-05] MEDS: REMERON 15 MG PO (21:06)
[2024-06-05] MEDS: NEURONTIN 300 MG PO (21:06)
[2024-06-05] MEDS: MYSOLINE 50 MG PO (21:07)
--- NOTE | 2024-06-06 04:20 | DOWNTIME ---
There was a [employer] Downtime on 06/06/2024 from 0100 to 06/06/2024 at 0255. Downtime documentation of patient's care, including medication administrations, has been reconciled in the electronic record per guidelines. Refer to the
patient's paper chart under the miscellaneous tab to see printed paper medication records and downtime forms.
[2024-06-06 06:46] LABS: Hemoglobin 12.1 g/dL (12.0-16.0); Mean Corp Hgb Conc. 35.6 g/dL (33.0-37.0); Mean Corpuscular Hgb 33.2 pg (27.0-31.0); Mean Corpuscular Volume 93.2 fL (81.0-99.0); Mean Platelet Volume 10.2 fL (7.4-10.4); Platelet Count 238 10^3/uL (130-400); Red Blood Cell Count 3.65 10^6/uL (4.20-5.40); Red Cell Dist. Width 12.3 % (11.5-14.5); White Blood Cell Count 4.8 10^3/uL (4.8-10.8)
[2024-06-06 07:15] LABS: Blood Urea Nitrogen 3 mg/dl (7-17); Calcium 9.2 mg/dl (8.4-10.2); Carbon Dioxide 32 mmol/L (22-30); Chloride 102 mmol/L (98-107); Estimated Creatinine Clearance 57 ml/min; Glucose 85 mg/dl (70-99); Magnesium 1.8 mg/dl (1.6-2.3); Potassium 3.1 mmol/L (3.5-5.1); Sodium 140 mmol/L (135-145); eGFR > 60.00
[2024-06-06 07:45] VITALS: BP 142/58
[2024-06-06] MEDS: NAMENDA 10 MG PO ×2 (08:41→20:14)
[2024-06-06] MEDS: QUESTRAN 4 GRAM PO ×3 (08:42→23:33)
[2024-06-06] MEDS: ARICEPT 10 MG PO (08:42)
[2024-06-06] MEDS: KCL 40 MEQ PO (08:42)
[2024-06-06] MEDS: ProAmatine PO (08:43)
--- NOTE | 2024-06-06 11:33 | W.PN.HOSP.TC ---
Today's Communication/Plan
-
Potassium remains low
Replace potassium
Recheck BMP
Appetite is good
Assessment / Plan
Assessment / Plan
Physical Exam
General: Not in acute distress
HEENT: Normocephalic
Neck: Supple
Lungs: Clear to Auscultation Bilaterally
Heart: S1, S2 regular, normal rate
Gastrointestinal: Positive bowel sounds, soft, nontender
Extremities: No cyanosis
Skin: Warm and dry
Neurological: Awake, alert and oriented x3, no facial droop, speech clear and comprehensive, good muscle tone, normal sensory and motor function
Psychiatric: Calm

Assessment/Plan
IMPRESSION:
79-year-old female presented to our ER with persistent diarrhea.
Functional Diarrhea
Orthostatic Hypotension
History of colon polyps
Hypercholesterolemia
Poor Appetite
Dehydration
Hypokalemia
Hypotension, resolved
Mild metabolic acidosis
History of IBS
History of orthostatic hypotension
Mild dementia
Osteoporosis
Depression
PLAN:
Patient has been having persistent diarrhea for the last 2-week, had a couple visit to different emergeny rooms, although workup is negative.
Potassium still low, continue to replace and monitor
IV Fluids
Orthostatic vital signs positive: continue Midodrine
Repeat stool workup including C. difficile, ova and parasite,
GI consulted, appreciate evaluation and recommendations
Abdominal X-Ray showed no bowel obstruction
Continue questran BID
Remeron QHS
Continue with low residue diet, Ensure High Protein TID added -- patient having good appetite and eating well
Continue her midodrine
Continue Namenda
Continue gabapentin
Aricept
CODE STATUS full code
DVT prophylaxis Lovenox
Anticipated Discharge: Within 24 hours
Subjective/Interval History
-
Date of Service: June 06, 2024
Patient was seen and examined. She reported no new symptoms or complaints. She was eating breakfast, and per the case filler she was ambulating in the hallways fine.
Objective Data
-
Labs:
Laboratory Results
06/06/24
05:44
WBC 4.8
Hgb 12.1
Hct 34.0 L
Plt Count 238
Sodium 140
Potassium 3.1 L
Chloride 102
Carbon Dioxide 32 H
BUN 3 L
Creatinine 0.6
Glucose 85
Calcium 9.2
Vital Signs:
Vital Signs
Temp Pulse Resp BP Pulse Ox
97.7 F 69 18 142/58 99
06/06/24 07:45 06/06/24 08:43 06/06/24 07:45 06/06/24 08:43 06/06/24 07:45
I&O
06/05/24 06/06/24 06/07/24
06:59 06:59 06:59
Intake Total 600 / 600 1800 / 1800
Output Total 600 / 600
Balance 0 / 0 1800 / 1800
[2024-06-06 12:30] VITALS: BP 92/53
[2024-06-06] MEDS: ProAmatine 10 MG PO (12:33)
--- NOTE | 2024-06-06 14:39 | CM ---
Reviewed the chart notes and spoke with the patient at the bedside. Per PT, no skilled needs. Ambulating ad ge in room independently. CM continues to be available to patient/family and is monitoring medical plan for needs at discharge.
Plan: Discharge to home when medically stable. No needs identified at this time.
[2024-06-06 15:41] VITALS: BP 103/52; BP 112/58; BP 79/50; PULSE 69; PULSE 73; PULSE 83
[2024-06-06 15:43] VITALS: BP 112/58
[2024-06-06] MEDS: LOVENOX 40 MG SC (17:52)
[2024-06-06] MEDS: REMERON 15 MG PO (22:07)
[2024-06-06] MEDS: NEURONTIN 300 MG PO (22:07)
[2024-06-06] MEDS: MYSOLINE 50 MG PO (22:07)
[2024-06-06 23:16] VITALS: BP 73/44; BP 90/49; BP 91/50; PULSE 70; PULSE 79; PULSE 83
[2024-06-06 23:52] LABS: Blood Urea Nitrogen 10 mg/dl (7-17); Calcium 9.8 mg/dl (8.4-10.2); Carbon Dioxide 30 mmol/L (22-30); Chloride 104 mmol/L (98-107); Estimated Creatinine Clearance 57 ml/min; Glucose 122 mg/dl (70-99); Potassium 3.8 mmol/L (3.5-5.1); Sodium 137 mmol/L (135-145); eGFR > 60.00
[2024-06-07 07:11] LABS: Hematocrit 33.3 % (37.0-47.0); Hemoglobin 11.6 g/dL (12.0-16.0); Mean Corp Hgb Conc. 34.8 g/dL (33.0-37.0); Mean Corpuscular Hgb 33.8 pg (27.0-31.0); Mean Corpuscular Volume 97.1 fL (81.0-99.0); Mean Platelet Volume 10.3 fL (7.4-10.4); Platelet Count 231 10^3/uL (130-400); Red Blood Cell Count 3.43 10^6/uL (4.20-5.40); Red Cell Dist. Width 12.5 % (11.5-14.5); White Blood Cell Count 4.8 10^3/uL (4.8-10.8)
[2024-06-07 07:34] LABS: Blood Urea Nitrogen 10 mg/dl (7-17); Calcium 9.3 mg/dl (8.4-10.2); Carbon Dioxide 31 mmol/L (22-30); Chloride 102 mmol/L (98-107); Estimated Creatinine Clearance 57 ml/min; Glucose 90 mg/dl (70-99); Magnesium 1.9 mg/dl (1.6-2.3); Potassium 3.9 mmol/L (3.5-5.1); Sodium 140 mmol/L (135-145); eGFR > 60.00
[2024-06-07 07:35] VITALS: BP 100/50
--- NOTE | 2024-06-07 08:00 | W.PN.HOSP.TC ---
Today's Communication/Plan
-
Placement pending
Assessment / Plan
Assessment / Plan
Physical Exam
General: Not in acute distress
HEENT: Normocephalic
Neck: Supple
Lungs: Clear to Auscultation Bilaterally
Heart: S1, S2 regular, normal rate
Gastrointestinal: Positive bowel sounds, soft, nontender
Extremities: No cyanosis
Skin: Warm and dry
Neurological: Awake, alert and oriented x3, no facial droop, speech clear and comprehensive, good muscle tone, normal sensory and motor function
Psychiatric: Calm

Assessment/Plan
IMPRESSION:
79-year-old female presented to our ER with persistent diarrhea.
Functional Diarrhea
Orthostatic Hypotension
History of colon polyps
Hypercholesterolemia
Poor Appetite
Dehydration
Hypokalemia
Hypotension, resolved
Mild metabolic acidosis
History of IBS
History of orthostatic hypotension
Mild dementia
Osteoporosis
Depression
PLAN:
Patient has been having persistent diarrhea for the last 2-week, had a couple visit to different emergeny rooms, although workup is negative.
Hypokalemia resolved
IV Fluids
Orthostatic vital signs positive: continue Midodrine
Repeat stool workup including C. difficile, ova and parasite,
GI consulted, appreciate evaluation and recommendations
Abdominal X-Ray showed no bowel obstruction
Continue questran BID
Remeron QHS
Continue with low residue diet, Ensure High Protein TID added -- patient having good appetite but at times still not eating, needs encouragement and knowledge that she is in medicines for diarrhea that should help so she should eat
Continue her midodrine
Continue Namenda
Continue gabapentin
Aricept
CODE STATUS full code
DVT prophylaxis Lovenox
I spoke t patient's yesterday, as well as patient's 's [id number] (who is Dr. Nunez and goes by Sandeep -- spoke to Sandeep at the request of patient and her ) -- Sandeep mentioned patient needs to go to SNF at [facility] as
she cannot function by herself in her independent living anymore.
Anticipated Discharge: 24 - 48 hours
Subjective/Interval History
-
Date of Service: June 07, 2024
Patient was seen and examined. Nurse reported that she has not eaten lunch and dinner yesterday, she mentioned she is afraid she will have diarrhea if she does.
Objective Data
-
Labs:
Laboratory Results
06/06/24 06/07/24
22:48 06:23
WBC 4.8
Hgb 11.6 L
Hct 33.3 L
Plt Count 231
Sodium 137 140
Potassium 3.8 3.9
Chloride 104 102
Carbon Dioxide 30 31 H
BUN 10 10
Creatinine 0.6 0.6
Glucose 122 H 90
Calcium 9.8 9.3
Vital Signs:
Vital Signs
Temp Pulse Resp BP Pulse Ox
99.2 F 70 16 112/58 96
06/06/24 23:17 06/06/24 15:43 06/06/24 15:43 06/06/24 15:43 06/06/24 23:17
I&O
06/06/24 06/07/24 06/08/24
06:59 06:59 06:59
Intake Total 1800 / 1800 550 / 550
Balance 1800 / 1800 550 / 550
[2024-06-07] MEDS: ProAmatine 10 MG PO ×2 (08:31→13:18)
[2024-06-07] MEDS: QUESTRAN 4 GRAM PO (08:31)
[2024-06-07] MEDS: NAMENDA 10 MG PO (08:31)
[2024-06-07] MEDS: ARICEPT 10 MG PO (08:31)
--- NOTE | 2024-06-07 10:23 | CM ---
Reviewed the chart notes and spoke with the patient and her brother at the bedside. Explained that patient does not meet qualifications for SNF. Patient to be discharged back to home. CM continues to be available to patient/family and is
monitoring medical plan for needs at discharge.
Plan: Discharge back to home. Patient's spouse will provide transportation.
--- NOTE | 2024-06-07 13:59 | W.DS.TRANS ---
DC Summary - Director Of District Office
-
Discharge Instructions:
Discharge Diagnosis/Procedures Functional Diarrhea
Orthostatic Hypotension
History of colon polyp
Hypercholesterolemia
Poor Appetite
Dehydration
Hypokalemia
Hypotension, resolved
Mild metabolic acidosis
History of IBS
History of orthostatic hypotension
Mild dementia
Osteoporosis
Depression
Diet Low Residue
Activity As tolerated
Driving Restrictions No driving
Blood Work Recheck your CBC, Magnesium and BMP with your
outpatient primary care doctor's office in the
next 1 to 5 days
Instructions: Cholestyramine Resin
Loperamide
Mirtazapine
Stand-Alone Forms:
Changes to Home Medications: Yes
Discharge Medications:
DC Medications w/original date entered in [employer]
risedronate 35 mg tablet,delayed release 35 mg PO TU OSTEOPOROSIS 08/15/20
donepezil 10 mg tablet (Aricept) 10 mg PO DAILY MEMORY 07/11/23
cyanocobalamin (vitamin B-12) 1,000 mcg tablet 3,000 mcg PO DAILY 06/03/24
gabapentin 300 mg capsule 300 mg PO HS 06/03/24
memantine 10 mg tablet 10 mg PO BID 06/03/24
midodrine 10 mg tablet 10 mg PO BID@0800,1200 06/03/24
primidone 50 mg tablet 50 mg PO HS 06/03/24
turmeric 400 mg capsule 1,500 mg PO DAILY 06/03/24
cholestyramine (with sugar) 4 gram powder for susp in a packet 4 g PO TID #60 ea 06/07/24
loperamide 2 mg capsule 2 mg PO BIDPRN PRN diarrhea #10 caps 06/07/24
mirtazapine 15 mg tablet 15 mg PO HS #30 tabs 06/07/24
Home Medication Changes
Cholestyramine, Loperamide and Mirtazapine are new medications.
Pending Results: No
Additional Pending Results:
Final results of stool studies from hospitalization
Total time spent discharging patient (in min): 38
[2024-06-07 14:57] VITALS: BP 123/59; BP 134/72; BP 89/55; PULSE 64; PULSE 68; PULSE 76
== END 2024-06-07 15:30 | disposition home or self-care (01) ==
LOC: 2 NORTH 14:57
PROVIDERS: ADMITTING PHYSICIAN Internal Medicine; ATTENDING PHYSICIAN Hospitalist; CONSULT PHYSICIAN Internal Medicine; EMERGENCY PHYSICIAN Emergency Medicine; FAMILY PHYSICIAN Family Medicine
DX: R19.7 Diarrhea, unspecified (principal); R10.9 Unspecified abdominal pain; F32.A Depression, unspecified; F03.A3 Unspecified dementia, mild, with mood disturbance; E86.0 Dehydration; E87.20 Acidosis, unspecified; K58.9 Irritable bowel syndrome, unspecified; M81.0 Age-related osteoporosis without current pathological fracture; K76.0 Fatty (change of) liver, not elsewhere classified; E87.6 Hypokalemia; E78.00 Pure hypercholesterolemia, unspecified; I95.1 Orthostatic hypotension; Z88.1 Allergy status to other antibiotic agents; Z86.010 Personal history of colon polyps
CPT/HCPCS: 80048; 80053; 81003; 81015; 82607; 83605; 83690; 83735; 84443; 85025; 85027; 86803; 87045; 87046; 87086; 87324; 87328; 87329; 87427; 87449; 89055; 96360; 97162; 97165; 99285; G0378

== ENCOUNTER 2024-06-20 18:52 | Observation (INO) | payer MEDICARE, OTHER, SELFPAY ==
[2024-06-20] VITALS (7 sets, daily range): BP systolic 113–142; BP diastolic 53–86; BMI 17.5; BMI 16.7
[2024-06-20 13:38] LABS: % Basophils 0.3 % (0-2); % Eosinophils 0.2 % (0-6); % Immature Granulocytes 0.4 % (0-0.5); % Lymphocytes 10.2 % (20.5-51.1); % Monocytes 4.8 % (1.7-9.3); % Neutrophils 84.1 % (42.2-75.2); Absolute Immature Granulocytes 0.1 10^3/uL (0-0.05); Absolute Lymphocytes 1.3 10^3/uL (1.2-3.4); Absolute Monocytes 0.6 10^3/uL (0.1-0.6); Absolute Neutrophils 10.3 10^3/uL (1.4-6.5); Hemoglobin 11.8 g/dL (12.0-16.0); Mean Corp Hgb Conc. 35.8 g/dL (33.0-37.0); Mean Corpuscular Hgb 33.3 pg (27.0-31.0); Mean Corpuscular Volume 93.2 fL (81.0-99.0); Mean Platelet Volume 9.6 fL (7.4-10.4); Nucleated Red Blood Cells % 0 %; Platelet Count 239 10^3/uL (130-400); Red Blood Cell Count 3.54 10^6/uL (4.20-5.40); Red Cell Dist. Width 12.3 % (11.5-14.5); White Blood Cell Count 12.3 10^3/uL (4.8-10.8)
[2024-06-20 14:08] LABS: ALT (SGPT) 67 U/L (0-35); AST (SGOT) 55 U/L (14-36); Albumin 4.2 g/dl (3.5-5.0); Alkaline Phosphatase 71 U/L (38-126); Blood Urea Nitrogen 10 mg/dl (7-17); Calcium 9.7 mg/dl (8.4-10.2); Carbon Dioxide 27 mmol/L (22-30); Chloride 105 mmol/L (98-107); Glucose 112 mg/dl (70-99); Lipase 125 U/L (23-300); Potassium 4.5 mmol/L (3.5-5.1); Sodium 136 mmol/L (135-145); Total Bilirubin 0.4 mg/dl (0.2-1.3); Total Protein 6.5 g/dl (6.3-8.2); eGFR > 60.00
--- NOTE | 2024-06-20 15:57 | ED.GENMED ---
History of Present Illness
General
Chief Complaint: Bowel Problem
Source: patient and spouse
Exam Limitations: none
Time Seen by Provider: 06/20/24 15:36
Nursing documentation reviewed up to this point in time: agreed with
History of Present Illness
History of Present Illness:
Patient is a 79-year-old female from [facility] with past with history depression IBS osteoporosis hypercholesteremia colon polyps who presents today for evaluation. Patient was recently admitted June 03 and discharged June 07 for recurrent
diarrhea patient that time was given IV fluids seen by GI. Patient was started on Questran and Remeron for appetite issues which were thought to be related to dementia. She was tested for celiac and was negative and negative for microscopic
colitis. reports is very weak and he is not able to take care of her. They live in independent living at [facility]. He reports she is not eating. As documented she was started on Remeron to increase her appetite however he reports
[facility] was not able to fill this until June
Past History
Past History
ED Past Medical History: Psychiatric (Anxiety) and Other (Mild dementia)
ED Past Surgical History: None
Social History
Tobacco: Non-smoker
Alcohol: None
Personal:
Living: with family
Review of Systems
Review of Systems
Allergies reviewed?: Yes
Unable to obtain full review of systems at this time due to: dementia
Other source history: family
All Other Systems: ROS reviewed and negative except as documented in HPI and ROS
Constitutional: Reports fatigue; Denies fever
EENT: Reports no symptoms
Respiratory: Reports no symptoms
Cardiac: Reports no symptoms
ABD/GI: Reports abdominal pain, diarrhea and other ( since patient did complain of abdominal pain at home she denies now +dec appetite ); Denies nausea or vomiting
: Reports no symptoms
Musculoskeletal: Reports no symptoms
Skin: Reports no symptoms
Neurological: Reports no symptoms
Psychiatric: Reports no symptoms
Phy Exam
General Physical Exam
General Presentation: well appearing
General age: appears stated age
General Skin: warm and dry
General Habitus: normal
General Mental: alert
General Hydration: appears well hydrated
Cardiovascular Exam
Cardiovascular Exam: regular rate/rhythm, no murmur and normal peripheral pulses
Pulmonary Exam
Pulmonary Exam: lungs clear and no respiratory distress
Neurological Exam
Neurological Exam: alert and oriented x3
Musculoskeletal Exam
Musculoskeletal Exam: full ROM
Skin Exam
Skin Exam: normal color and warm/dry
Psychiatric Exam
Psychiatric Exam: normal mood/affect
Course
Orders/Labs/Results
Orders:
Orders
06/20/24 13:29
Complete Blood Count/With Diff Urgent
Comprehensive Metabolic Panel Urgent
Lipase Urgent
06/20/24 16:13
Straight cath- Treatment ONCE
06/20/24 17:21
0.9% Sodium Chloride 500 ml [Nss] 500 ml IV BOLUS
06/20/24 17:25
UA Reflex to Culture [Urinalysis Reflex To Culture] Urgent
Date Specimen was Collected: 06/20/24
Time Specimen was Collected: 17:16
Urine Microscopic Reflex Cult Urgent
Urine Culture Urgent
BARRY Source: U
Specimen Description:
Date Specimen was Collected: 06/20/24
Time Specimen was Collected: 17:16
06/20/24 18:15
Admit/Transfer Patient As Directed
Co-Sign Provider:
Level of Care: Observation services
Assign to:: Medical/Surgical
Physician / Group: lianne
Diagnosis: failure to thrive
06/20/24 18:16
Code Status As Directed
Resuscitation Status: Full Code
Abnormal Lab Results
06/20/24 06/20/24
13:29 17:25
WBC 12.3 H 10^3/uL
(4.8-10.8)
RBC 3.54 L 10^6/uL
(4.20-5.40)
Hgb 11.8 L g/dL
(12.0-16.0)
Hct 33.0 L %
(37.0-47.0)
MCH 33.3 H pg
(27.0-31.0)
Abs Immat Gran (auto) 0.1 H 10^3/uL
(0-0.05)
Absolute Neuts (auto) 10.3 H 10^3/uL
(1.4-6.5)
Neutrophils % 84.1 H %
(42.2-75.2)
Lymphocytes % 10.2 L %
(20.5-51.1)
Glucose 112 H mg/dl
(70-99)
AST 55 H U/L
(14-36)
ALT 67 H U/L
(0-35)
Urine Ketones Trace A
(Negative)
Ur Occult Blood Reflex Trace A
(Negative)
Leukocyte Esterase Rfl Trace A
(Negative)
Urine Bacteria (Reflex) Moderate A
(Negative)
06/20/24 13:29
06/20/24 13:29
Vital Signs
Initial and Last Documented VS:
Initial Vital Signs
Temp Pulse Resp BP Pulse Ox
97.9 F 70 18 136/61 99
06/20/24 13:22 06/20/24 13:22 06/20/24 13:22 06/20/24 13:22 06/20/24 13:22
Last Documented Vital Signs
Temp Pulse Resp BP Pulse Ox
97.9 F 64 15 113/57 97
06/20/24 13:22 06/20/24 18:00 06/20/24 18:00 06/20/24 18:00 06/20/24 18:00
MDM/Problems Addressed
Differential Diagnosis Includes:
Not limited to diarrhea electrolyte abnormality dehydration dementia
MDM/Problems Addressed:
Patient is a 79-year-old female with dementia chronic diarrhea irritable bowel who was brought back to the ER for continued diarrhea. Patient was admitted June 03 June 07 seen by GI had an unremarkable workup started on Questran for diarrhea
however this has not given her relief. reports she is very weak. there is also component of dementia and she was prescribed Remeron to assist with appetite she is not eating. reports [facility] was not able to fill this prescription as
they did not have it. Patient does not feel that he can take care of her at home. Case management did see patient and patient will not be able to be placed in skilled rehab tonight. She has normal renal function we will give her small
bolus of fluids she appears mildly dry. White count minimally elevated no complaints of fever or chills. Will check urine. Patient will require mission. Case reviewed with admitting hospitalist
183: Straight cath done by nurse urine does not appear infected.
*Critical Care Note
Total Time (30-74mins, 75-104mins- exclusive of procedures): Not Applicable
ED Attending Note
-
Portions of this chart may have been created with voice recognition software.� Occasional wrong word or��sound alike� substitutions may have occurred due to the inherent limitations of voice recognition software.
Discharge Plan
Departure
Patient Disposition: Admit
Date of Disposition: 06/20/24
Time of Disposition: 17:54
Admit to: Med/Surg
Admit to doctor: hospitalist
Presentation/result/management discussed w/ accepting MD/DO: Hospitalist
Patient with high blood pressure during this ER visit?: No
Condition: Fair
Covid-19: Not Applicable
Discharge Problem:
Diarrhea, Weakness
Prescriptions:
No Action
primidone 50 mg Tablet
50 mg PO HS
cyanocobalamin (vitamin B-12) 1,000 mcg Tablet
3,000 mcg PO DAILY
gabapentin 300 mg Capsule
300 mg PO HS
midodrine 10 mg Tablet
10 mg PO BID@0800,1200
memantine 10 mg Tablet
10 mg PO BID
turmeric 400 mg Capsule
1,500 mg PO DAILY
loperamide 2 mg Capsule
2 mg PO BIDPRN PRN (Reason: diarrhea) Qty: 10 0RF
cholestyramine (with sugar) 4 gram Powder In Packet
4 g PO TID Qty: 60 0RF
risedronate 30 mg tablet
30 mg PO TU
Referrals:
Mari Chatterjee DO [Family Provider] -
Interventions
Interventions:
*Risk Screen - Suicide Last Done: 06/20/24 13:22
*General Assessment Last Done: 06/20/24 13:22
*Neglect/Abuse Screening Last Done: 06/20/24 13:22
ED- Fall Risk Assessment Last Done: 06/20/24 16:15
*ED COVID-19 Vaccine History Last Done: 06/20/24 13:24
PT-Mxpjpx-[id number] Assessment Last Done: 06/20/24 16:15
Discharge Date and Time
Print Language: GREEK
--- NOTE | 2024-06-20 15:57 | EDRN ---
Danii Durham ROVING MACHINE OPERATOR in to see pt though was not able to see pt r/t pt in [place] at this time.
--- NOTE | 2024-06-20 16:22 | EDRN ---
Jesika from Case Management is in room w/ pt and spouse
--- NOTE | 2024-06-20 16:54 | CM ---
Addendum entered by Jesika Blackburn RN 06/20/24 17:12:
[facility] and patient's will sweet pickled fruit maker from [facility] pharmacy.
Original Note:
CM spoke with patient's . Patient's stated that they lives at [facility] in [place]. Patient's further stated that they has 'some kind of people' coming to the apartment, but could not describe who they were. Patient's
further stated that the [facility] RN came out to the house today to set up 'something like PT'.
has spoke with Carey from [facility] who stated that they would have a bed available in assisted living at [facility]. CM advised that [facility] is a SNF and patient would have to be accepted. CM further
advised that patient's recent stay although 4 days was not inpatient and did not county towards the requirement for SNF.
Patient's further stated that patient has recently fallen, but he did not mention that to the ED provider. CM updated ED provider that SNF placement will be difficult this evening. Patient's would like patient to be evaluated further
in the hospital.
CM sent referral to [facility] SN[facility].
Patient's further stated that he was unable to obtain patient's Remeron and it would not be available until June.
[2024-06-20] MEDS: NSS 500 IV (17:27)
[2024-06-20 17:36] LABS: Urine Albumin Trace (Neg - Trace); Urine Bilirubin Negative (Negative); Urine Character Clear (Clear); Urine Color Yellow; Urine Glucose Negative (Negative); Urine Ketone Trace (Negative); Urine Leukocyte Trace (Negative); Urine Nitrite Negative (Negative); Urine Occult Blood Trace (Negative); Urine Urobilinogen Negative (Neg - 1+)
[2024-06-20 18:03] LABS: Urine Mucus Few; Urine Squamous Cell 0-2 /LPF (Few)
[2024-06-20 18:04] LABS: Urine Calcium Oxalate Crystals Present
[2024-06-20 18:05] LABS: Urine Bacteria Moderate (Negative); Urine Red Blood Cell 0-2 /HPF (0-2)
--- NOTE | 2024-06-20 18:11 | EDRN ---
Dr. Hawkins in room w/ pt and spouse at this time.
--- NOTE | 2024-06-20 18:17 | HPS.HSE ---
Family Physician
-
Family Physician: Mari Chatterjee
Chief Complaint
-
weakness
History of Present Illness
79-year-old female past medical history of functional diarrhea, IBS, orthostatic hypotension, colon polyps, hypercholesterolemia, mild dementia, osteoporosis, anxiety/depression, presenting from independent living at [facility] for
weakness and inability to care for her. Patient lies in the bed the whole day.
Patient recently admitted from June 03 to for chronic diarrhea and at that time she was treated with IV fluids and seen by GI. She was started on Questran and Remeron to help with diarrhea and improved appetite which was thought to be related to
dementia. She was tested for celiac which was negative. is unable to take care of her. [facility] was not able to fill Remeron until June.
Patient denies any fevers or chills, urinary symptoms, nausea or vomiting or abdominal pain.
Patient is a former smoker. She does drink a glass of alcohol daily but has not had any alcohol in several weeks.
Medical History
Past Medical History
Past Medical History: Reports Other (functional diarrhea, IBS, orthostatic hypotension, colon polyps, hypercholesterolemia, mild dementia, osteoporosis, anxiety/depression,)
Past Surgical History: Reports None
Social History
Tobacco: Former Smoker
Alcohol: Occasional
Drug: None
Family History
Family History: Not pertinent
Allergies / Home Medications
Allergies reflects when Allergies were last updated in [employer].
Home Medications with original date entered in [facility]
Allergy/Medication List:
Allergies
Allergy/AdvReac Type Severity Reaction Status Date / Time
tetracycline [Tetracycline] Allergy yeast Verified 06/20/24 13:22
infection
Home Medications
cyanocobalamin (vitamin B-12) 1,000 mcg tablet 3,000 mcg PO DAILY 06/03/24
gabapentin 300 mg capsule 300 mg PO HS 06/03/24
memantine 10 mg tablet 10 mg PO BID 06/03/24
midodrine 10 mg tablet 10 mg PO BID@0800,1200 06/03/24
primidone 50 mg tablet 50 mg PO HS 06/03/24
turmeric 400 mg capsule 1,500 mg PO DAILY 06/03/24
cholestyramine (with sugar) 4 gram powder for susp in a packet 4 g PO TID #60 ea 06/07/24
loperamide 2 mg capsule 2 mg PO BIDPRN PRN diarrhea #10 caps 06/07/24
risedronate 30 mg tablet 30 mg PO TU 06/20/24
Review of Systems
-
History Source: Patient
A 12 point ROS was completed and negative except as noted: Yes
Constitutional: Reports No Symptoms
EENT: Reports No Symptoms
Respiratory: Reports No Symptoms
Cardiac: Reports No Symptoms
Abdomen/GI: Reports See HPI
: Reports No Symptoms
Musculoskeletal: Reports No Symptoms
Skin: Reports No Symptoms
Neurological: Reports No Symptoms
Endocrine: Reports No Symptoms
Hematologic/Lymphatic: Reports No Symptoms
Psych: Reports No Symptoms
Physical Exam
Vital Signs
Vital Signs
Temp Pulse Resp BP Pulse Ox
97.9 F 64 15 113/57 97
06/20/24 13:22 06/20/24 18:00 06/20/24 18:00 06/20/24 18:00 06/20/24 18:00
Physical Exam
General: Well Developed, Well Nourished and No Apparent Distress
HEENT: NormoCephalic, Moist mucous membranes and Atraumatic
Respiratory: Clear
Cardiac: S1/S2 and Regular Rhythm; No Murmur or Rub
GI: Soft, Non Tender, Non Distended and Normal Bowel Sounds; No Organomegaly
Rectal: Deferred by Provider
Musculoskeletal: No Clubbing, No Cyanosis and No Edema
Skin: No Rash
Neuro: Nonfocal/grossly intact
Laboratory Results
-
06/20/24 13:29
06/20/24 13:29
Laboratory Results
Total Bilirubin 0.4 mg/dl (0.2-1.3) 06/20/24 13:29
AST 55 U/L (14-36) H 06/20/24 13:29
ALT 67 U/L (0-35) H 06/20/24 13:29
Alkaline Phosphatase 71 U/L (38-126) 06/20/24 13:29
Lipase 125 U/L (23-300) 06/20/24 13:29
Data Reviewed
-
Lab Data: Labs Reviewed by me
Old Records: Reviewed
Impression/Plan
-
IMPRESSION:
PLAN:
# Weakness/poor appetite/failure to thrive secondary to dementia
-Is unable to fill Remeron at [facility] but can now be picked up due to being expedited by case management
-Start Remeron today
-Case management to assist with SNF placement
# Functional diarrhea
-Continue cholestyramine which has improved symptoms somewhat but not completely
-Continue loperamide
-Outpatient follow-up with GI (patient requesting that we let GI Dr. Hinojosa know that she is here)
Mild dementia
-Continue donepezil, memantine
Tremors
-continue primidone, gabapentin
Orthostatic hypotension
-Continue midodrine
History of colon polyps
Hypercholesterolemia
Osteoporosis
-On risedronate
Anxiety/depression
Full code
DVT prophylaxis�heparin
Regular diet
--- NOTE | 2024-06-20 18:45 | EDRN ---
Pt was OOB to BR had a tiny loose non formed BM in toilet.
--- NOTE | 2024-06-20 20:49 | PTCARENOTE ---
Patient admitted from ED. Patient AAO x2, disoriented to time, on RA, in no acute distress. Bed alarm is on. Patient oriented to room and call kendall within reach.
[2024-06-20] MEDS: NAMENDA 10 MG PO (21:04)
[2024-06-20] MEDS: NEURONTIN 300 MG PO (21:04)
[2024-06-20] MEDS: MYSOLINE 50 MG PO (21:04)
[2024-06-20] MEDS: HEPARIN 5000 UNITS SC (21:04)
[2024-06-20] MEDS: QUESTRAN 4 GRAM PO (22:20)
[2024-06-20] MEDS: REMERON 15 MG PO (22:20)
[2024-06-21 05:23] LABS: Hematocrit 30.2 % (37.0-47.0); Hemoglobin 10.7 g/dL (12.0-16.0); Mean Corp Hgb Conc. 35.4 g/dL (33.0-37.0); Mean Corpuscular Hgb 33.4 pg (27.0-31.0); Mean Corpuscular Volume 94.4 fL (81.0-99.0); Mean Platelet Volume 9.7 fL (7.4-10.4); Platelet Count 212 10^3/uL (130-400); Red Cell Dist. Width 12.2 % (11.5-14.5); White Blood Cell Count 7.4 10^3/uL (4.8-10.8)
[2024-06-21 05:48] LABS: ALT (SGPT) 57 U/L (0-35); AST (SGOT) 42 U/L (14-36); Albumin 3.4 g/dl (3.5-5.0); Alkaline Phosphatase 60 U/L (38-126); Blood Urea Nitrogen 6 mg/dl (7-17); Carbon Dioxide 28 mmol/L (22-30); Chloride 108 mmol/L (98-107); Estimated Creatinine Clearance 49 ml/min; Glucose 89 mg/dl (70-99); Potassium 4.2 mmol/L (3.5-5.1); Sodium 139 mmol/L (135-145); Total Bilirubin 0.5 mg/dl (0.2-1.3); Total Protein 5.6 g/dl (6.3-8.2); eGFR > 60.00
[2024-06-21 07:15] VITALS: BP 102/57
[2024-06-21] MEDS: ProAmatine 10 MG PO ×2 (08:41→12:12)
[2024-06-21] MEDS: VITAMIN B-12 3000 MCG PO (08:42)
[2024-06-21] MEDS: HEPARIN 5000 UNITS SC ×2 (08:42→20:29)
[2024-06-21] MEDS: NAMENDA 10 MG PO ×2 (08:42→20:28)
[2024-06-21] MEDS: QUESTRAN 4 GRAM PO (10:38)
[2024-06-21] MEDS: IMODIUM 2 MG PO (10:39)
--- NOTE | 2024-06-21 11:36 | W.PN.HOSP.TC ---
Addendum entered and electronically signed by Darrin Malin MD 06/21/24 15:20:
I spoke with student support counselor Dr. Hinojosa, and per her request, I have ordered CT Imaging of the Abdomen Pelvis with IV and Oral contrast due to patient's weight loss.
Original Note:
Today's Communication/Plan
-
Case Management to work on SNF placement
Continue Remeron and Questran
Assessment / Plan
Assessment / Plan
Physical Exam
General: Not in acute distress
HEENT: Normocephalic, Moist mucous membranes
Respiratory: Clear to Auscultation Bilaterally
Cardiac: S1/S2 and Regular Rhythm
GI: Soft, Non Tender, Non Distended and Normal Bowel Sounds
Musculoskeletal: No Cyanosis and No Edema
Skin: Warm. Dry.
Neuro: Nonfocal/grossly intact

Assessment/Plan
# Weakness/poor appetite/failure to thrive secondary to dementia
-Is unable to fill Remeron at [facility] but can now be picked up due to being expedited by case management
-Continue Remeron
-Case management to assist with SNF placement
# Functional diarrhea
-Continue cholestyramine which has improved symptoms somewhat but not completely
-Continue loperamide
-Outpatient follow-up with GI (patient requesting that we let GI Dr. Hinojosa know that she is here)
Mild dementia
-Continue donepezil, memantine
Tremors
-continue primidone, gabapentin
Orthostatic hypotension
-Continue midodrine
History of colon polyps
Hypercholesterolemia
Osteoporosis
-On risedronate
Anxiety/depression
Full code
DVT prophylaxis�heparin
Regular diet
Anticipated Discharge: > 48 hours
Subjective/Interval History
-
Date of Service: June 21, 2024
Patient was seen and examined. She denied any abdominal pain or any other symptoms or complaints.
Objective Data
-
Labs:
Laboratory Results
06/21/24
04:26
WBC 7.4
Hgb 10.7 L
Hct 30.2 L
Plt Count 212
Sodium 139
Potassium 4.2
Chloride 108 H
Carbon Dioxide 28
BUN 6 L
Creatinine 0.7
Glucose 89
Calcium 9.0
Total Bilirubin 0.5
AST 42 H
ALT 57 H
Alkaline Phosphatase 60
Vital Signs:
Vital Signs
Temp Pulse Resp BP Pulse Ox
98.7 F 67 12 102/57 98
06/21/24 07:15 06/21/24 08:41 06/21/24 07:15 06/21/24 08:41 06/21/24 07:15
[2024-06-21 12:10] VITALS: BP 91/51
[2024-06-21 13:35] VITALS: BMI 16.7
[2024-06-21 15:37] VITALS: BP 115/59
[2024-06-21] MEDS: OMNIPAQUE 50 ML PO (15:59)
[2024-06-21] MEDS: QUESTRAN PO (16:08)
--- NOTE | 2024-06-21 17:13 | CM ---
Addendum entered by Elida Crews 06/22/24 08:42:
anisha mentioned that if patient needs snf at [facility] patient can come on observation.
if pt goes back to [facility] then please fax clinicals to [facility] care at [phone].
Original Note:
i met with patient at bedside.she is being followed by gi,for ct scan of abd/pelvis re wt loss,on regular diet,patient does not feel she needs to go to [facility].await pt/ot evals.spoke with therapy and they need an order for an eval rather
than screening.i send TT to attending to order pt/ot evals.i also spoke with anisha at [facility]. i faxed her clinicals,.if patient gos home,she asks pavan i fax clinicals to [facility] for home pt. i will keep anisha informed of pt
recommendations.plan home with hc vs snf.
[2024-06-21] MEDS: NEURONTIN 300 MG PO (22:48)
[2024-06-21] MEDS: REMERON 15 MG PO (22:48)
[2024-06-21] MEDS: MYSOLINE 50 MG PO (22:48)
[2024-06-21 23:00] VITALS: BP 94/51
[2024-06-22 05:25] VITALS: BP 102/46
--- NOTE | 2024-06-22 05:27 | PTCARENOTE ---
Last night pt able to walk across hallway with one assist, woke pt up this am pt extremely unsteady X2 assist to BSC - bilateral lower extremities with spasming movements. Pt initially confused to place and time but reoriented easily. Pt now A+ OX3.
Did notice has mild R sd facial droop only with smile but when RN asked her to lift that side of her mouth she is able to equally. NIH completed 0. BP 102/46 HR 60-70s. House WELDING PANTOGRAPH OPERATOR notified, no new orders at this time.
--- NOTE | 2024-06-22 06:52 | CON.GI ---
Addendum entered and electronically signed by Susan Pendleton MD 06/22/24 17:57:
I saw and examined the patient.
The BUTTON FACING MACHINE OPERATOR or PA's note was reviewed and I agree with the note.
Comment: 79 yo F pmh as below well known to Dr. Hinojosa previously had diarrhea. P/w weakness and inability to care for herself. 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
Plan for X-ray in AM to assess stool burden. No stool in vault on exam.
If no extensive stool burden on xray ok gi pov for dc in am.
Tolerating diet.
Agree with adding miralax for bowel regimen.
Original Note:
Consultation
-
Date/Time Consultation Requested: 06/21/241999
Date/Time Consultation Performed: 06/22/24 0700
Requesting Provider: Darrin Malin MD
Performing Provider: TESSIE Pineda, Vibha Pendleton MD
Reason for Consultation: decreased appetite, abnormal imaging
Medical History
Chief Complaint / HPI
Chief Complaint: weakness
History of Present Illness:
Pt is a 79yo with hx IBS, depression, osteoporosis, hypercholesterolemia, colon polyps, fatty liver with recent admission with persistent diarrhea with intermittent symptoms for months. She has been at [facility] with neg CT and abd imaging.
Prior review of chart with work up with Dr. Hinojosa in past with neg celiac and neg bx for microscopic colitis. She has been treated with Xifaxan in past with improvement. She denies any recent travel abx or sick contacts. She was seen in early
May in GI office then admitted to 06/03- 06/17. Stool studies were negative with normal fecal fat and pancreatic elastase. Abd X ray with Air distention in colon retained contrast and diverticulosis. She was given electrolyte replacement and
recommended Questran and Remeron but unable to fill Remeron. She now returns with weakness and inability to care for self. On admission repeat CT with concern for distention of rectum and suggest stercoral colitis with moderate stool in rest of
colon. She was given MOM enema with several stools. Prior colonoscopy 2021 with neg microscopic colitis.
Since admission she states she is feeling improved. She complains of dizziness which is chronic with standing. she reports chronic irregular bowels for years with diarrhea and constiaption. She denies dysphagia, GERD, nausea, vomiting,
abdominal pain, blood or black in stools.
Past Medical History
Past Medical History: Hypercholesterolemia, Psychiatric (mild dementia, anxiety, depression, osteoposis, colon polyps, osteoporosis, anemia ) and Other (osteoporosis, IBS, scoliosis, diverticulosis, anemia, fatty liver, colon polyps, )
Past Surgical History: Other (finger surgery, cyst behind knee removal)
Social History
Tobacco: Non-Smoker
Alcohol: Daily (1 drink daily)
Drug: None
Personal:
Living: With Family
Employment: Retired
Family History
Family History: Other (no family hx colon CA or polyps)
Allergies / Home Medications
Allergy/AdvReac Type Severity Reaction Status Date / Time
tetracycline [Tetracycline] Allergy yeast Verified 06/20/24 13:22
infection
�Medication �Instructions �Recorded
cyanocobalamin (vitamin B-12) 3,000 mcg PO DAILY Supplement 06/03/24
1,000 mcg tablet
gabapentin 300 mg capsule 300 mg PO HS Neurological Condition 06/03/24
memantine 10 mg tablet 10 mg PO BID Alzheimer's 06/03/24
midodrine 10 mg tablet 10 mg PO BID@0800,1200 Blood 06/03/24
Pressure
primidone 50 mg tablet 50 mg PO HS Neurological Condition 06/03/24
turmeric 400 mg capsule 1,500 mg PO DAILY 06/03/24
cholestyramine (with sugar) 4 gram 4 g PO TID #60 ea 06/07/24
powder for susp in a packet
loperamide 2 mg capsule 2 mg PO BIDPRN PRN diarrhea #10 06/07/24
caps
risedronate 30 mg tablet 30 mg PO TU Osteoporosis 06/20/24
Review of Systems
-
Unable to obtain full review of systems at this time due to: Dementia
History Source: Patient
Constitutional: Reports Weight Loss (with diarrhea ) and Other (feeling cold/chills )
EENT: Reports No Symptoms
Respiratory: Reports No Symptoms
Cardiac: Reports No Symptoms
Abdomen/GI: Reports Diarrhea and Constipated
: Reports No Symptoms
Musculoskeletal: Reports No Symptoms
Skin: Reports No Symptoms
Neurological: Reports Dizzy and Weakness
Endocrine: Reports No Symptoms
Hematologic/Lymphatic: Reports No Symptoms
Vital Signs
Temp Pulse Resp BP Pulse Ox
98.1 F 68 16 102/46 96
06/21/24 23:00 06/22/24 05:25 06/21/24 23:00 06/22/24 05:25 06/22/24 05:25
Physical Exam
Exam
General: Well Developed, Well Nourished and No Apparent Distress
HEENT: Normocephalic and Anicteric
Respiratory: Clear
Cardiac: Regular Rhythm
GI: Soft and Distended (minimal )
Rectal: Other (no impaction, minimal brown liquid stool )
Musculoskeletal: No Clubbing and No Cyanosis
Skin: Warm and Dry
Neuro: Awake, Alert and Other (forgetful to some questions)
Psych: Calm
Results
WBC 7.4 10^3/uL (4.8-10.8) 06/21/24 04:26
Hgb 10.7 g/dL (12.0-16.0) L 06/21/24 04:
Hct 30.2 % (37.0-47.0) L 06/21/24 04:26
MCV 94.4 fL (81.0-99.0) 06/21/24 04:26
Plt Count 212 10^3/uL (130-400) 06/21/24 04:26
Absolute Neuts (auto) 10.3 10^3/uL (1.4-6.5) H 06/20/24 13:29
Sodium 139 mmol/L (135-145) 06/21/24 04:26
Potassium 4.2 mmol/L (3.5-5.1) 06/21/24 04:26
Chloride 108 mmol/L (98-107) H 06/21/24 04:26
Carbon Dioxide 28 mmol/L (22-30) 06/21/24 04:26
BUN 6 mg/dl (7-17) L 06/21/24 04:26
Creatinine 0.7 mg/dL (0.6-1.0) 06/21/24 04:26
Calcium 9.0 mg/dl (8.4-10.2) 06/21/24 04:26
Total Bilirubin 0.5 mg/dl (0.2-1.3) 06/21/24 04:26
AST 42 U/L (14-36) H 06/21/24 04:26
ALT 57 U/L (0-35) H 06/21/24 04:26
Alkaline Phosphatase 60 U/L (38-126) 06/21/24 04:26
Lipase 125 U/L (23-300) 06/20/24 13:29
Diagnostic Image Results:
06/21/24 CT Abd/pelvis W Iv Cont
Distention of the rectum with stool. There is surrounding perirectal edema. Findings are highly suggestive of stercoral colitis.
No evidence for perforation. No evidence of free intraperitoneal air.
Moderate amount of stool in the rest of the colon.
Colonic diverticula with no CT evidence for diverticulitis. The appendix appears normal.
Prominent left periuterine veins with prominent enhancement of the left gonadal vein.
Bony degenerative changes as described.
05/31/24 abd X ray
1. Mild air distention of most of the colon.
2. Contrast material in the descending colon, sigmoid colon, and rectum.
3. Severe diverticulosis in the sigmoid colon.
4. Severe multilevel discogenic degenerative disease in the lumbar spin
Prior GI Procedures:
EGD: 08/2022- maik - No gross lesions in the entire esophagus.
- Z-line regular, 38 cm from the incisors.
- Small hiatal hernia.
- Erythematous mucosa in the antrum. Biopsied.
- Normal examined duodenum. Biopsied.
bx neg metaplasia, neg H pylori no lymphcytes
Colonoscopy: 08/2022 Ereni - The examined portion of the ileum was normal.
- Tortuous colon.
- Normal mucosa in the entire examined colon. Biopsied.
- Two 1 to 2 mm polyps in the rectum, removed with a
jumbo cold forceps. Resected and retrieved.
- Diverticulosis in the sigmoid colon.
bx HP polyp melanosis coli, neg acute or colangenous colitis
Assessment / Plan
-
Pt is a 79yo with hx IBS, depression, osteoporosis, hypercholesterolemia, colon polyps, fatty liver with recent admission with persistent diarrhea with intermittent symptoms for months. She has been at [facility] with neg CT and abd imaging.
Prior review of chart with work up with Dr. Hinojosa in past with neg celiac and neg bx for microscopic colitis. She has been treated with Xifaxan in past with improvement. She denies any recent travel abx or sick contacts. She was seen in early
May in GI office then admitted to 06/03- 06/17. Stool studies were negative with normal fecal fat and pancreatic elastase. Abd X ray with Air distention in colon retained contrast and diverticulosis. She was given electrolyte replacement and
recommended Questran and Remeron but unable to fill Remeron. She now returns with weakness and inability to care for self. On admission repeat CT with concern for distention of rectum and suggest stercoral colitis with moderate stool in rest of
colon. She was given MOM enema with several stools. Prior colonoscopy 2021 with neg microscopic colitis.
Impression
-concern for constipation with overflow/stercoral colitis
hx Functional diarrhea
Stool studies negative last admission
EGD/colon done in 2021 without cause found
-anemia
-elevated transaminase
-dizziness
other medical problems:
- dementia
-depression
-osteoporosis
-hypercholesterolemia
-colon polyps
Recommendations
Etiology of diarrhea and now constipation with stercoral colitis related to recently added questran, IBS, chronic constipation with overflow vs other
s/p MOM enema with several stools -- stool cleared on rectal exam
monitor stool function
hold questran and would not resume
add miralax daily to keep bowel moving -- may need adjustment on bowel regiment based on bowel function
cont Remeron as appetite stimulant
cont regular diet
can consider flex if not improving or continued diarrhea with colitis but already tolerating regular diet
pt with some elevated transaminase on admission etiology unclear but near normalization-- liver normal on cT with IV contrast on admission repeat in AM consider further work up with hepatitis not normalized
case management follow for pt ability to return home vs need for SNF
work up per hospitalist for dizziness but per patient chronic symptom
-
-
Thank you for consultation and allowing me to participate in the patient's care. Please call the dietitian consultant GI physician during the after hours with any questions or concerns.
[2024-06-22 07:30] VITALS: BP 100/44
[2024-06-22 08:44] LABS: % Basophils 0.3 % (0-2); % Eosinophils 1.1 % (0-6); % Immature Granulocytes 0.3 % (0-0.5); % Lymphocytes 27.3 % (20.5-51.1); % Monocytes 7.5 % (1.7-9.3); % Neutrophils 63.5 % (42.2-75.2); Absolute Eosinophils 0.1 10^3/uL (0-0.7); Absolute Lymphocytes 1.7 10^3/uL (1.2-3.4); Absolute Monocytes 0.5 10^3/uL (0.1-0.6); Hematocrit 32.1 % (37.0-47.0); Mean Corp Hgb Conc. 34.3 g/dL (33.0-37.0); Mean Corpuscular Hgb 33.6 pg (27.0-31.0); Mean Corpuscular Volume 98.2 fL (81.0-99.0); Mean Platelet Volume 9.6 fL (7.4-10.4); Nucleated Red Blood Cells % 0 %; Platelet Count 197 10^3/uL (130-400); Red Blood Cell Count 3.27 10^6/uL (4.20-5.40); Red Cell Dist. Width 12.6 % (11.5-14.5); White Blood Cell Count 6.3 10^3/uL (4.8-10.8)
[2024-06-22 08:46] LABS: ALT (SGPT) 48 U/L (0-35); AST (SGOT) 31 U/L (14-36); Albumin 3.6 g/dl (3.5-5.0); Alkaline Phosphatase 70 U/L (38-126); Blood Urea Nitrogen 6 mg/dl (7-17); Calcium 9.1 mg/dl (8.4-10.2); Carbon Dioxide 28 mmol/L (22-30); Chloride 105 mmol/L (98-107); Estimated Creatinine Clearance 57 ml/min; Glucose 93 mg/dl (70-99); Magnesium 2.2 mg/dl (1.6-2.3); Potassium 4.1 mmol/L (3.5-5.1); Sodium 136 mmol/L (135-145); Total Bilirubin 0.4 mg/dl (0.2-1.3); eGFR > 60.00
[2024-06-22] MEDS: HEPARIN 5000 UNITS SC ×2 (09:38→21:01)
[2024-06-22] MEDS: NAMENDA 10 MG PO ×2 (09:39→21:00)
[2024-06-22] MEDS: ProAmatine 10 MG PO ×2 (09:39→12:09)
[2024-06-22] MEDS: FLUSH (NSS) 1 FLUSH IV (09:40)
[2024-06-22 11:22] VITALS: BP 102/56; BP 106/51; PULSE 68; O2SAT 96
[2024-06-22 15:44] VITALS: BP 103/58
--- NOTE | 2024-06-22 15:50 | W.PN.HOSP.TC ---
Today's Communication/Plan
-
Bowel regimen
Placement
Assessment / Plan
Assessment / Plan
Physical Exam
General: Not in acute distress
HEENT: Normocephalic, Moist mucous membranes
Respiratory: Clear to Auscultation Bilaterally
Cardiac: S1/S2 and Regular Rhythm
GI: Soft, Non Tender, Non Distended and Normal Bowel Sounds
Musculoskeletal: No Cyanosis and No Edema
Skin: Warm. Dry.
Neuro: Nonfocal/grossly intact

Assessment/Plan
# Weakness/poor appetite/failure to thrive secondary to dementia
-Was unable to fill Remeron at [facility] but can now be picked up due to being expedited by case management
-Continue Remeron
-Case management to assist with SNF placement
#Stercoral Colitis and Constipation
# Functional diarrhea
-Enema given
-Continue Miralax
-Stop Questran
-Stop Loperamide
-Outpatient follow-up with GI (patient requesting that we let GI Dr. Hinojosa know that she is here)
Mild dementia
-Continue donepezil, memantine
Tremors
-continue primidone, gabapentin
Orthostatic hypotension
-Continue midodrine
History of colon polyps
Hypercholesterolemia
Osteoporosis
-On risedronate
Anxiety/depression
Full code
DVT prophylaxis�heparin
Regular diet
Anticipated Discharge: 24 - 48 hours
Subjective/Interval History
-
Date of Service: June 22, 2024
Patient was seen and examined. She denied any abdominal pain, and she did have bowel movements after enema overnight.
Objective Data
-
Labs:
Laboratory Results
06/22/24
08:14
WBC 6.3
Hgb 11.0 L
Hct 32.1 L
Plt Count 197
Sodium 136
Potassium 4.1
Chloride 105
Carbon Dioxide 28
BUN 6 L
Creatinine 0.6
Glucose 93
Calcium 9.1
Total Bilirubin 0.4
AST 31
ALT 48 H
Alkaline Phosphatase 70
Vital Signs:
Vital Signs
Temp Pulse Resp BP Pulse Ox
98.4 F 62 18 103/58 93
06/22/24 15:44 06/22/24 15:44 06/22/24 15:44 06/22/24 15:44 06/22/24 15:44
I&O
06/21/24 06/22/24 06/23/24
06:59 06:59 06:59
Intake Total 1220 / 1220
Balance 1220 / 1220
--- NOTE | 2024-06-22 15:54 | CM ---
manager installation met with patient and patient stated that she wanted to return to [facility] when stable.
[facility]
[phone] Option 2

[place] [phone]
Plan; Waiting on final determination from physical therapy recommendation is for home v's skilled placement.
[2024-06-22 18:26] LABS: Vitamin B12 > 1000 pg/ml (239-931)
[2024-06-22] MEDS: VITAMIN B-12 PO (18:30)
[2024-06-22] MEDS: REMERON 15 MG PO (21:00)
[2024-06-22] MEDS: NEURONTIN 300 MG PO (21:00)
[2024-06-22] MEDS: MYSOLINE 50 MG PO (21:00)
[2024-06-22 23:40] VITALS: BP 112/57
[2024-06-23 07:55] VITALS: BP 101/60
[2024-06-23] MEDS: ProAmatine 10 MG PO ×2 (08:31→11:58)
[2024-06-23] MEDS: MIRALAX 17 GRAMS PO ×2 (08:31→20:01)
[2024-06-23] MEDS: HEPARIN 5000 UNITS SC ×2 (08:31→20:02)
[2024-06-23] MEDS: NAMENDA 10 MG PO ×2 (08:32→20:02)
[2024-06-23] MEDS: VITAMIN B-12 PO (08:33)
[2024-06-23 09:23] LABS: ALT (SGPT) 46 U/L (0-35); AST (SGOT) 33 U/L (14-36); Albumin 3.5 g/dl (3.5-5.0); Alkaline Phosphatase 67 U/L (38-126); Blood Urea Nitrogen 11 mg/dl (7-17); Calcium 9.1 mg/dl (8.4-10.2); Carbon Dioxide 32 mmol/L (22-30); Chloride 104 mmol/L (98-107); Estimated Creatinine Clearance 49 ml/min; Glucose 89 mg/dl (70-99); Magnesium 2.3 mg/dl (1.6-2.3); Potassium 4.5 mmol/L (3.5-5.1); Sodium 138 mmol/L (135-145); Total Bilirubin 0.3 mg/dl (0.2-1.3); Total Protein 5.7 g/dl (6.3-8.2); eGFR > 60.00
[2024-06-23 09:33] LABS: % Basophils 0.7 % (0-2); % Eosinophils 3.4 % (0-6); % Immature Granulocytes 0.2 % (0-0.5); % Lymphocytes 38.9 % (20.5-51.1); % Monocytes 10.2 % (1.7-9.3); % Neutrophils 46.6 % (42.2-75.2); Absolute Eosinophils 0.1 10^3/uL (0-0.7); Absolute Lymphocytes 1.6 10^3/uL (1.2-3.4); Absolute Monocytes 0.4 10^3/uL (0.1-0.6); Absolute Neutrophils 1.9 10^3/uL (1.4-6.5); Hematocrit 32.5 % (37.0-47.0); Hemoglobin 11.1 g/dL (12.0-16.0); Mean Corp Hgb Conc. 34.2 g/dL (33.0-37.0); Mean Corpuscular Hgb 33.8 pg (27.0-31.0); Mean Corpuscular Volume 99.1 fL (81.0-99.0); Mean Platelet Volume 10.2 fL (7.4-10.4); Nucleated Red Blood Cells % 0 %; Platelet Count 206 10^3/uL (130-400); Red Blood Cell Count 3.28 10^6/uL (4.20-5.40); Red Cell Dist. Width 12.7 % (11.5-14.5); White Blood Cell Count 4.1 10^3/uL (4.8-10.8)
--- NOTE | 2024-06-23 11:31 | W.PN.GI.CBS2 ---
Addendum entered and electronically signed by Susan Pendleton MD 06/23/24 14:36:
I saw and examined the patient.
The SALES MERCH[employer]ISE ASSOCIATE or PA's note was reviewed and I agree with the note.
Comment: 79 yo F pmh as below well known to Dr. Hinojosa previously had diarrhea. P/w weakness and inability to care for herself. 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
Xray with small amount of stool.
Tolerating diet.
Stop questran and will do miralax 1-2 times a day ensure regular bm.
ok gi pov for discharge will sign off d/w hospitalist
Original Note:
Today's Communication / Plan
-
Etiology of diarrhea and now constipation with stercoral colitis related to recently added questran, IBS, chronic constipation with overflow vs other
improved with enema and now on daily miralax
abd X ray improved
cont Miralax daily
cont Remeron as appetite stimulant
cont regular diet
very minimal elevated ALT with trend downward -- CT stable
stable from GI for discharge
OP follow up with Dr. Hinojosa /MAYI 4-6 weeks message sent to office to arrange
Assessment / Plan
-
Pt is a 79yo with hx IBS, depression, osteoporosis, hypercholesterolemia, colon polyps, fatty liver with recent admission with persistent diarrhea with intermittent symptoms for months. She has been at [facility] with neg CT and abd imaging.
Prior review of chart with work up with Dr. Hinojosa in past with neg celiac and neg bx for microscopic colitis. She has been treated with Xifaxan in past with improvement. She denies any recent travel abx or sick contacts. She was seen in early
May in GI office then admitted to 06/03- 06/17. Stool studies were negative with normal fecal fat and pancreatic elastase. Abd X ray with Air distention in colon retained contrast and diverticulosis. She was given electrolyte replacement and
recommended Questran and Remeron but unable to fill Remeron. She now returns with weakness and inability to care for self. On admission repeat CT with concern for distention of rectum and suggest stercoral colitis with moderate stool in rest of
colon. She was given MOM enema with several stools. Prior colonoscopy 2021 with neg microscopic colitis.
06/23 abd X ray with Residual contrast opacifies the colon with likely mild colonic stool burden.
Impression
-concern for constipation with overflow/stercoral colitis
hx Functional diarrhea
Stool studies negative last admission
EGD/colon done in 2021 without cause found
-anemia
-elevated transaminase
-dizziness
other medical problems:
- dementia
-depression
-osteoporosis
-hypercholesterolemia
-colon polyps
Recommendations
Etiology of diarrhea and now constipation with stercoral colitis related to recently added questran, IBS, chronic constipation with overflow vs other
improved with enema and now on daily miralax
abd X ray improved
cont Miralax daily
cont Remeron as appetite stimulant
cont regular diet
very minimal elevated ALT with trend downward -- CT stable
stable from GI for discharge
OP follow up with Dr. Hinojosa /MAYI 4-6 weeks message sent to office to arrange
Subjective
Subjective
Date of Service: June 23, 2024
06/21 brown stool tolerating diet
Objective
Data Reviewed
Laboratory Data:
Laboratory Results
06/23/24 08:04
06/23/24 08:04
Laboratory Results
Magnesium 2.3 mg/dl (1.6-2.3) 06/23/24 08:04
Total Bilirubin 0.3 mg/dl (0.2-1.3) 06/23/24 08:04
AST 33 U/L (14-36) 06/23/24 08:04
ALT 46 U/L (0-35) H 06/23/24 08:04
Alkaline Phosphatase 67 U/L (38-126) 06/23/24 08:04
Lipase 125 U/L (23-300) 06/20/24 13:29
Vital Signs and I&O:
Vital Signs
Temp Pulse Resp BP Pulse Ox
97.4 F 59 16 101/60 99
06/23/24 07:55 06/23/24 07:55 06/23/24 07:55 06/23/24 07:55 06/23/24 07:55
I&O
06/22/24 06/23/24 06/24/24
06:59 06:59 06:59
Intake Total 1220 / 1220 480 / 480
Balance 1220 / 1220 480 / 480
Physical Exam
Physical Exam
HEENT: Anicteric and Moist mucous membranes
Cardiology: Normal Sinus Rhythm
Pulmonary: Clear
GI: Soft, Non Distended and Non Tender
Extremities: No Edema
Neuro: Non Focal
--- NOTE | 2024-06-23 13:48 | W.PN.HOSP.TC ---
Today's Communication/Plan
-
Discharge today
Assessment / Plan
Assessment / Plan
Physical Exam
General: Not in acute distress
HEENT: Normocephalic, Moist mucous membranes
Respiratory: Clear to Auscultation Bilaterally
Cardiac: S1/S2 and Regular Rhythm
GI: Soft, Non Tender, Non Distended and Normal Bowel Sounds
Musculoskeletal: No Cyanosis and No Edema
Skin: Warm. Dry.
Neuro: Nonfocal/grossly intact

Assessment/Plan
# Weakness/poor appetite/failure to thrive secondary to dementia
-Was unable to fill Remeron at [facility] but can now be picked up due to being expedited by case management
-Continue Remeron
-Case management to assist with SNF placement
#Stercoral Colitis and Constipation -- Related to Recently Added Questran
# Functional diarrhea
-GI consulted, recommendations appreciated
-Enema given
-Continue Miralax
-Patient having bowel movements
-Repeat abdominal x-ray improved
-Stop Questran
-Stop Loperamide
-Outpatient follow-up with GI
Mild dementia
-Continue donepezil, memantine
Tremors
-continue primidone, gabapentin
Orthostatic hypotension
-Continue midodrine
History of colon polyps
Hypercholesterolemia
Osteoporosis
-On risedronate
Anxiety/depression
Full code
DVT prophylaxis�heparin
Regular diet
More than 30 minutes spent in discharge including
Final examination of the patient
Summarizing hospital stay
Instructions for continuing care to all relevant caregivers
Preparation of discharge records, prescriptions, and referral forms
Total time spent (in minutes): 40
Anticipated Discharge: Today
Subjective/Interval History
-
Date of Service: June 23, 2024
Patient was seen and examined. She denied any new symptoms or complaints, she has been having bowel movements.
Objective Data
-
Labs:
Laboratory Results
06/23/24
08:04
WBC 4.1 L
Hgb 11.1 L
Hct 32.5 L
Plt Count 206
Sodium 138
Potassium 4.5
Chloride 104
Carbon Dioxide 32 H
BUN 11
Creatinine 0.7
Glucose 89
Calcium 9.1
Total Bilirubin 0.3
AST 33
ALT 46 H
Alkaline Phosphatase 67
Vital Signs:
Vital Signs
Temp Pulse Resp BP Pulse Ox
98.0 F 64 16 123/56 98
06/23/24 12:07 06/23/24 11:58 06/23/24 12:07 06/23/24 11:58 06/23/24 12:07
I&O
06/22/24 06/23/24 06/24/24
06:59 06:59 06:59
Intake Total 1220 / 1220 480 / 480
Balance 1220 / 1220 480 / 480
[2024-06-23 15:30] VITALS: BP 139/79
[2024-06-23] MEDS: NEURONTIN 300 MG PO (20:00)
[2024-06-23] MEDS: REMERON 15 MG PO (20:01)
[2024-06-23] MEDS: MYSOLINE 50 MG PO (20:02)
[2024-06-23 23:55] VITALS: BP 101/56
[2024-06-24] MEDS: ProAmatine 10 MG PO ×2 (07:35→12:11)
[2024-06-24] MEDS: MIRALAX 17 GRAMS PO (07:35)
[2024-06-24] MEDS: HEPARIN 5000 UNITS SC (07:36)
[2024-06-24] MEDS: NAMENDA 10 MG PO (07:36)
[2024-06-24 07:55] VITALS: BP 104/55
[2024-06-24 08:41] LABS: % Eosinophils 2.4 % (0-6); % Immature Granulocytes 0.5 % (0-0.5); % Lymphocytes 44.9 % (20.5-51.1); % Monocytes 9.3 % (1.7-9.3); % Neutrophils 41.9 % (42.2-75.2); Absolute Eosinophils 0.1 10^3/uL (0-0.7); Absolute Lymphocytes 1.9 10^3/uL (1.2-3.4); Absolute Monocytes 0.4 10^3/uL (0.1-0.6); Absolute Neutrophils 1.8 10^3/uL (1.4-6.5); Hematocrit 31.8 % (37.0-47.0); Hemoglobin 11.2 g/dL (12.0-16.0); Mean Corp Hgb Conc. 35.2 g/dL (33.0-37.0); Mean Corpuscular Hgb 34.4 pg (27.0-31.0); Mean Corpuscular Volume 97.5 fL (81.0-99.0); Mean Platelet Volume 10.2 fL (7.4-10.4); Nucleated Red Blood Cells % 0 %; Platelet Count 213 10^3/uL (130-400); Red Blood Cell Count 3.26 10^6/uL (4.20-5.40); Red Cell Dist. Width 12.7 % (11.5-14.5); White Blood Cell Count 4.2 10^3/uL (4.8-10.8)
[2024-06-24 09:15] LABS: ALT (SGPT) 42 U/L (0-35); AST (SGOT) 33 U/L (14-36); Albumin 3.4 g/dl (3.5-5.0); Alkaline Phosphatase 81 U/L (38-126); Blood Urea Nitrogen 9 mg/dl (7-17); Calcium 9.1 mg/dl (8.4-10.2); Carbon Dioxide 29 mmol/L (22-30); Chloride 103 mmol/L (98-107); Estimated Creatinine Clearance 49 ml/min; Glucose 82 mg/dl (70-99); Potassium 4.4 mmol/L (3.5-5.1); Sodium 136 mmol/L (135-145); Total Bilirubin 0.4 mg/dl (0.2-1.3); Total Protein 5.8 g/dl (6.3-8.2); eGFR > 60.00
--- NOTE | 2024-06-24 12:20 | W.PN.HOSP.TC ---
Today's Communication/Plan
-
Discharge today
Assessment / Plan
Assessment / Plan
Physical Exam
General: Not in acute distress
HEENT: Normocephalic, Moist mucous membranes
Respiratory: Clear to Auscultation Bilaterally
Cardiac: S1/S2 and Regular Rhythm
GI: Soft, Non Tender, Non Distended and Normal Bowel Sounds
Musculoskeletal: No Cyanosis and No Edema
Skin: Warm. Dry.
Neuro: Nonfocal/grossly intact

Assessment/Plan
# Weakness/poor appetite/failure to thrive secondary to dementia
-Was unable to fill Remeron at [facility] but can now be picked up due to being expedited by case management
-Continue Remeron
-Case management to assist with SNF placement
#Stercoral Colitis and Constipation -- Related to Recently Added Questran
# Functional diarrhea
-GI consulted, recommendations appreciated
-Enema given
-Continue Miralax
-Patient having bowel movements
-Repeat abdominal x-ray improved
-Stop Questran
-Stop Loperamide
-Outpatient follow-up with GI
Mild dementia
-Continue donepezil, memantine
Tremors
-continue primidone, gabapentin
Orthostatic hypotension
-Continue midodrine
History of colon polyps
Hypercholesterolemia
Osteoporosis
-On risedronate
Anxiety/depression
Full code
DVT prophylaxis�heparin
Regular diet
More than 30 minutes spent in discharge including
Final examination of the patient
Summarizing hospital stay
Instructions for continuing care to all relevant caregivers
Preparation of discharge records, prescriptions, and referral forms
Total time spent (in minutes): 35
Anticipated Discharge: Today
Subjective/Interval History
-
Date of Service: June 24, 2024
Patient was seen and examined. She was eating breakfast and denied any symptoms or complaints.
Objective Data
-
Labs:
Laboratory Results
06/24/24
06:32
WBC 4.2 L
Hgb 11.2 L
Hct 31.8 L
Plt Count 213
Sodium 136
Potassium 4.4
Chloride 103
Carbon Dioxide 29
BUN 9
Creatinine 0.7
Glucose 82
Calcium 9.1
Total Bilirubin 0.4
AST 33
ALT 42 H
Alkaline Phosphatase 81
Vital Signs:
Vital Signs
Temp Pulse Resp BP Pulse Ox
97.4 F 63 16 102/49 99
06/24/24 07:55 06/24/24 12:11 06/24/24 07:55 06/24/24 12:11 06/24/24 07:55
I&O
06/23/24 06/24/24 06/25/24
06:59 06:59 06:59
Intake Total 480 / 480 720 / 720
Balance 480 / 480 720 / 720
--- NOTE | 2024-06-24 14:18 | W.DS.TRANS ---
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
-
Discharge Instructions:
Discharge Diagnosis/Procedures # Weakness/poor appetite/failure to thrive
secondary to dementia
# Stercoral Colitis and Constipation -- Related
to Recently Added Questran
# Functional diarrhea
# Mild dementia
# Tremors
# Orthostatic hypotension
# History of colon polyps
# Hypercholesterolemia
# Osteoporosis
# Anxiety/depression
Diet Regular
Activity With assistance
Driving Restrictions No driving
Instructions:
Stand-Alone Forms:
Changes to Home Medications: Yes
Discharge Medications:
DC Medications w/original date entered in [facility]
cyanocobalamin (vitamin B-12) 1,000 mcg tablet 3,000 mcg PO DAILY Supplement 06/03/24
gabapentin 300 mg capsule 300 mg PO HS Neurological Condition 06/03/24
memantine 10 mg tablet 10 mg PO BID Alzheimer's 06/03/24
midodrine 10 mg tablet 10 mg PO BID@0800,1200 Blood Pressure 06/03/24
primidone 50 mg tablet 50 mg PO HS Neurological Condition 06/03/24
turmeric 400 mg capsule 1,500 mg PO DAILY 06/03/24
risedronate 30 mg tablet 30 mg PO TU Osteoporosis 06/20/24
mirtazapine 15 mg tablet 15 mg PO HS #30 tabs 06/24/24
polyethylene glycol 3350 17 gram oral powder packet (HealthyLax) 17 g PO BID #100 ea 06/24/24
Home Medication Changes
Mirtazapine and HealthyLax are new medications.
Cyanocobalamin is on hold; Vitamin B12 levels were high in hospital and should be rechecked outpatient before resuming.
Cholestyramine (Questran) and Loperamide stopped.
Pending Results: No
Total time spent discharging patient (in min): 35
--- NOTE | 2024-06-24 14:35 | CM ---
SYLVAIN met with Allison and her yesterday to discuss admission to SNF; [address] at [facility]. Allison and her reside in the independent living apartments at [facility], however Allison is weaker than usual and
recommendation for short term SNF stay has been agreed upon. SYLVAIN spoke with Nursing Science Teacher, Lissa, yesterday who advised no bed was available for admission yesterday, but confirmed a bed available for today.
Pt and are agreeable to SNF admission. Negative Covid test requested prior to discharge. TT to MD to request order for Covid test. RN aware of same.
Allison's will transport from [facility] to [facility] today. Provided instructions upon arrival - to go to the security building; security will show him how to get to the ambulance entrance which will be for [facility]
[address].
Report: [phone]; option 1, ask for the nursing supervisor metal furniture assembly to provide report.
[2024-06-24 14:58] LABS: COVID-19 Antigen Negative (Negative)
[2024-06-24 15:33] VITALS: BP 101/44
--- NOTE | 2024-06-27 17:54 | W.DCSUMMARY ---
Discharge Summary
Discharge Data
Date of Admission: 06/20/24
Date of Discharge: 06/24/24
Total time spent discharging patient (in min): 35
-
Pending Results: No
Hospital Course
79-year-old female with past medical history of functional diarrhea, IBS, orthostatic hypotension, colon polyps, hypercholesterolemia, mild dementia, osteoporosis, anxiety/depression, presented from independent living at [facility] by for
weakness and inability to care for her. Patient was noted to have recently been admitted from June 03 to 2023 for chronic diarrhea and at that time she was treated with IV fluids and seen by gastroenterology. She was started on Questran and
Remeron to help with diarrhea and improved appetite (reduced appetite was thought to be due to dementia). It was noted that [facility] pharmacy was not able to fill Remeron until June. Case was discussed with patient's manipulative therapy specialist, Dr. Hinojosa,
which showed perirectal edema and significant stool burden, with suggestion of stercoral colitis. CT also showed colonic diverticula. Milk of Molasses enema was given with good bowel movement and patient was continued on laxatives. Patient's
Questran and Imodium were stopped.
Discharge Plan
-
Patient Disposition: [facility]/SNF
Discharge Diagnosis/Procedures: # Weakness/poor appetite/failure to thrive secondary to dementia
# Stercoral Colitis and Constipation -- Related to Recently Added Questran
# Functional diarrhea
# Mild dementia
# Tremors
# Orthostatic hypotension
# History of colon polyps
# Hypercholesterolemia
# Osteoporosis
# Anxiety/depression
Condition: Fair
Diet: Regular
Activity: With assistance
Driving Restrictions: No driving
Activity Restrictions/Additional Instructions:
Stop questran and will do miralax 1-2 times a day ensure regular bm.
Referrals:
Mari Chatterjee DO [Family Provider] - in less than 1 week
Marcia Hinojosa MD [Active] - (follow up 4-6 weeks)
Additional Discharge Medication Instructions: Mirtazapine and HealthyLax are new medications.
Cyanocobalamin is on hold; Vitamin B12 levels were high in hospital and should be rechecked outpatient before resuming.
Cholestyramine (Questran) and Loperamide stopped.
Prescriptions:
New
polyethylene glycol 3350 [HealthyLax] 17 gram Powder In Packet
17 g PO BID Qty: 100 1RF
mirtazapine 15 mg Tablet
15 mg PO HS Qty: 30 0RF
Continued
primidone 50 mg Tablet
50 mg PO HS
gabapentin 300 mg Capsule
300 mg PO HS
midodrine 10 mg Tablet
10 mg PO BID@0800,1200
memantine 10 mg Tablet
10 mg PO BID
turmeric 400 mg Capsule
1,500 mg PO DAILY
risedronate 30 mg tablet
30 mg PO TU
Held
cyanocobalamin (vitamin B-12) 1,000 mcg Tablet
3,000 mcg PO DAILY
Hold Instructions: Resume on 07/24/24. Recheck Vitamin B12 levels outpatient and resume if needed after discussing with outpatient physician.
Discontinued
loperamide 2 mg Capsule
2 mg PO BIDPRN PRN (Reason: diarrhea) Qty: 10 0RF
cholestyramine (with sugar) 4 gram Powder In Packet
4 g PO TID Qty: 60 0RF
Discharge Orders:
Discharge Patient (As Directed); Ordered 06/24/24
Ordered By: Darrin Malin
Discharge Date and Time
Discharge Date/Time: 06/24/24 15:52
Print Language: SPANISH
== END 2024-06-24 15:52 ==
LOC: 4 EAST ACU 18:52
PROVIDERS: Emergency Medicine; Nurse Practitioner; ADMITTING PHYSICIAN Hospitalist; ATTENDING PHYSICIAN Hospitalist; CONSULT PHYSICIAN Internal Medicine Gastroenterology; EMERGENCY PHYSICIAN Emergency Medicine; FAMILY PHYSICIAN Family Medicine
DX: R53.1 Weakness (principal); R63.0 Anorexia; R62.7 Adult failure to thrive; R19.7 Diarrhea, unspecified; F32.A Depression, unspecified; F03.A3 Unspecified dementia, mild, with mood disturbance; F03.A4 Unspecified dementia, mild, with anxiety; E78.00 Pure hypercholesterolemia, unspecified; R25.1 Tremor, unspecified; K76.0 Fatty (change of) liver, not elsewhere classified; K59.00 Constipation, unspecified; D64.9 Anemia, unspecified; R60.9 Edema, unspecified; M51.36 Other intervertebral disc degeneration, lumbar region; M41.9 Scoliosis, unspecified; K57.30 Diverticulosis of large intestine without perforation or abscess without bleeding; I95.1 Orthostatic hypotension; M81.0 Age-related osteoporosis without current pathological fracture; K58.0 Irritable bowel syndrome with diarrhea; Z87.19 Personal history of other diseases of the digestive system; Z87.891 Personal history of nicotine dependence; Z88.1 Allergy status to other antibiotic agents; Z75.1 Person awaiting admission to adequate facility elsewhere
CPT/HCPCS: 74018; 74177; 80053; 81003; 81015; 82607; 83690; 83735; 85025; 85027; 87086; 87811; 96360; 97162; 97166; 97535; 99284; G0378; Q9967

== ENCOUNTER 2024-07-20 06:32 | Day surgery (SDC) | payer MEDICARE, OTHER, SELFPAY ==
[2024-07-20 13:25] VITALS: BP 128/61
[2024-07-20 13:31] VITALS: BMI 17.6
[2024-07-20 15:40] VITALS: BP 108/55
[2024-07-20 15:41] VITALS: BP 108/55
[2024-07-20 15:45] VITALS: BP 108/56
[2024-07-20 16:00] VITALS: BP 113/62
[2024-07-20 16:15] VITALS: BP 126/64
== END 2024-07-20 16:35 | disposition home or self-care (01) ==
LOC: SDS 06:32
PROVIDERS: ATTENDING PHYSICIAN Internal Medicine Gastroenterology
DX: K57.30 Diverticulosis of large intestine without perforation or abscess without bleeding (principal); R19.7 Diarrhea, unspecified
CPT/HCPCS: 45331; 88305

== ENCOUNTER 2024-09-17 15:51 | Inpatient (IN) | payer MEDICARE, OTHER, SELFPAY ==
[2024-09-17] VITALS (8 sets, daily range): BP systolic 120–166; BP diastolic 59–80; BMI 16.6
--- NOTE | 2024-09-17 13:03 | ED.GENMED ---
History of Present Illness
General
Chief Complaint: Abdominal Symptoms
Source: patient
Exam Limitations: none
Time Seen by Provider: 09/17/24 12:41
History of Present Illness
History of Present Illness:
79-year-old female presents with more pronounced diarrhea over the past 2 to 3 days with associated weakness. She has a history of sterile coral colitis. She is on budesonide 3 times a day for colitis. There has been no fever or chest pain. She
is concerned about dehydration with the GI team sent her in here for evaluation. She denies any blood in the stool.
Past History
Past History
ED Past Medical History: Psychiatric (Anxiety) and Other (Mild dementia)
ED Past Surgical History: None
Social History
Tobacco: Non-smoker
Alcohol: None
Personal:
Living: with family
Phy Exam
Physical Exam
Physical Exam:
General: Well-appearing female no acute respiratory distress
HEENT: Normocephalic atraumatic
Heart: Regular rate and rhythm no murmurs
Lungs: Clear no wheeze
Abdomen is soft nontender nondistended
Extremities: No cyanosis or edema
Course
Orders/Labs/Results
Orders:
Orders
09/17/24 12:52
STOOL [C difficile Antigen & Toxins] Urgent
BARRY Source: Feces/Stool
Specimen Description:
Stool Culture Urgent
BARRY Source: Feces/Stool
Specimen Description:
09/17/24 12:54
0.9% Sodium Chloride 1000 ml [Nss] 1,000 ml IV BOLUS
09/17/24 13:08
Complete Blood Count/With Diff Urgent
Comprehensive Metabolic Panel Urgent
09/17/24 13:18
CR Obstruct Series W/pa Chest Urgent
Comment:
Reason For Exam: dirrhea
Abnormal Lab Results
09/17/24
13:08
RBC 3.59 L 10^6/uL
(4.20-5.40)
Hgb 11.9 L g/dL
(12.0-16.0)
Hct 34.8 L %
(37.0-47.0)
MCH 33.1 H pg
(27.0-31.0)
Absolute Monos (auto) 0.7 H 10^3/uL
(0.1-0.6)
Lymphocytes % 16.7 L %
(20.5-51.1)
Carbon Dioxide 31 H mmol/L
(22-30)
Glucose 102 H mg/dl
(70-99)
09/17/24 13:08
09/17/24 13:08
Vital Signs
Initial and Last Documented VS:
Initial Vital Signs
Temp Pulse Resp BP Pulse Ox
98.0 F 59 16 137/69 94
09/17/24 11:26 09/17/24 11:26 09/17/24 11:26 09/17/24 11:26 09/17/24 11:26
Last Documented Vital Signs
Temp Pulse Resp BP Pulse Ox
98.0 F 59 16 137/69 94
09/17/24 11:26 09/17/24 11:26 09/17/24 11:26 09/17/24 11:26 09/17/24 11:26
MDM/Problems Addressed
Differential Diagnosis Includes:
Patient with worsening diarrhea. History of sterile coral colitis. Abdomen exam benign currently. Concerned about dehydration. Will check labs and stool cultures. Fluids ordered. GI team made aware
*Critical Care Note
Total Time (30-74mins, 75-104mins- exclusive of procedures): Not Applicable
Update Note
Update Note:
Patient reevaluated. Labs reviewed white count normal electrolytes normal. Fluids running. Discussed findings with GI who saw the patient as well. GI is recommending admission to hospital for further evaluation. Abdominal x-ray pending
ED Attending Note
-
Portions of this chart may have been created with voice recognition software.� Occasional wrong word or��sound alike� substitutions may have occurred due to the inherent limitations of voice recognition software.
Discharge Plan
Departure
Patient Disposition: Admit
Date of Disposition: 09/17/24
Time of Disposition: 13:41
Admit to: Telemetry
Presentation/result/management discussed w/ accepting MD/DO: Hospitalist
Discharge Problem:
Diarrhea
Prescriptions:
No Action
primidone 50 mg Tablet
50 mg PO HS
cyanocobalamin (vitamin B-12) 1,000 mcg Tablet
3,000 mcg PO DAILY
gabapentin 300 mg Capsule
300 mg PO HS
midodrine 10 mg Tablet
10 mg PO BID@0800,1200
memantine 10 mg Tablet
10 mg PO BID
turmeric 400 mg Capsule
1,500 mg PO DAILY
risedronate 30 mg tablet
30 mg PO TU
polyethylene glycol 3350 [HealthyLax] 17 gram Powder In Packet
17 g PO BID Qty: 100 1RF
mirtazapine 15 mg Tablet
15 mg PO HS Qty: 30 0RF
Fleet Enema 19-7 gram/118 mL Enema
118 ml IA ONCE
Referrals:
Maris Loza CRNP [Family Provider] -
Interventions
Interventions:
*Risk Screen - Suicide Last Done: 09/17/24 11:26
Discharge Date and Time
Print Language: MACEDONIAN
[2024-09-17] MEDS: NSS 1000 IV (13:09)
[2024-09-17 13:16] LABS: % Basophils 0.4 % (0-2); % Eosinophils 1.4 % (0-6); % Immature Granulocytes 0.5 % (0-0.5); % Lymphocytes 16.7 % (20.5-51.1); % Monocytes 8.3 % (1.7-9.3); % Neutrophils 72.7 % (42.2-75.2); Absolute Eosinophils 0.1 10^3/uL (0-0.7); Absolute Lymphocytes 1.3 10^3/uL (1.2-3.4); Absolute Monocytes 0.7 10^3/uL (0.1-0.6); Absolute Neutrophils 5.7 10^3/uL (1.4-6.5); Hematocrit 34.8 % (37.0-47.0); Hemoglobin 11.9 g/dL (12.0-16.0); Mean Corp Hgb Conc. 34.2 g/dL (33.0-37.0); Mean Corpuscular Hgb 33.1 pg (27.0-31.0); Mean Corpuscular Volume 96.9 fL (81.0-99.0); Mean Platelet Volume 9.3 fL (7.4-10.4); Nucleated Red Blood Cells % 0 %; Platelet Count 270 10^3/uL (130-400); Red Blood Cell Count 3.59 10^6/uL (4.20-5.40); Red Cell Dist. Width 14.5 % (11.5-14.5); White Blood Cell Count 7.8 10^3/uL (4.8-10.8)
[2024-09-17 13:31] LABS: ALT (SGPT) 21 U/L (0-35); AST (SGOT) 29 U/L (14-36); Albumin 4.3 g/dl (3.5-5.0); Alkaline Phosphatase 90 U/L (38-126); Blood Urea Nitrogen 15 mg/dl (7-17); Calcium 9.7 mg/dl (8.4-10.2); Carbon Dioxide 31 mmol/L (22-30); Chloride 102 mmol/L (98-107); Glucose 102 mg/dl (70-99); Potassium 3.8 mmol/L (3.5-5.1); Sodium 140 mmol/L (135-145); Total Bilirubin 0.5 mg/dl (0.2-1.3); eGFR > 60.00
--- NOTE | 2024-09-17 13:39 | CON.GI ---
Consultation
-
Date/Time Consultation Requested: 09/17/2024
Date/Time Consultation Performed: 09/17/2024
Requesting Provider: Dr. Hinojosa
Performing Provider: Dr. Ball
Reason for Consultation: Diarrhea
Medical History
Chief Complaint / HPI
Chief Complaint: Diarrhea
History of Present Illness:
Pt is a 79yo with hx IBS, depression, osteoporosis, hypercholesterolemia, colon polyps, fatty liver presenting with complaints of persistent diarrhea with intermittent symptoms for months. She was admitted to the hospital in June 2024, CT scan
at that time showed increased fecal burden with stercoral colitis, she was treated with enemas and was started on bowel regimen and discharged. She subsequently had flexible sigmoidoscopy July 20, 2024, Biopsies showed evidence of
lymphocytic/microscopic colitis. She was treated with budesonide 9 mg a day, initially started seeing improvement but again in the last 2 weeks started having multiple episodes of loose stool. As per patient 10-12 times, mainly after eating and
incontinent. No abdominal pain, nausea or vomiting. No heartburn or trouble swallowing. No blood in the stool or black stool. Does not take Imodium or Pepto-Bismol.
she has been at [facility] with neg CT and abd imaging in May 2024. Prior review of chart with work up in past with neg celiac and neg bx for microscopic colitis. She has been treated with Xifaxan in past with improvement. She denies any
recent travel abx or sick contacts. She was seen in early May in GI office then admitted to 06/03- 06/17. Stool studies were negative with normal fecal fat and pancreatic elastase. Abd X ray with Air distention in colon retained contrast and
diverticulosis. She was given electrolyte replacement and recommended Questran and Remeron but unable to fill Remeron. Prior colonoscopy 2021 with neg microscopic colitis.
She complains of dizziness which is chronic with standing. reports that he is not able to take care of her at home. She does drink alcohol on a daily basis, reports 1 glass of white wine. Patient was told to stop alcohol several
times during her visits.
Past Medical History
Past Medical History: Other ( Hypercholesterolemia, Psychiatric (mild dementia, anxiety, depression, osteoposis, colon polyps, anemia ))
Past Surgical History: Other (finger surgery, cyst behind knee removal)
Social History
Tobacco: Non-Smoker
Alcohol: Daily
Family History
Family History: Reviewed & Not Pertinent
Allergies / Home Medications
Allergy/AdvReac Type Severity Reaction Status Date / Time
tetracycline [Tetracycline] Allergy yeast Verified 06/20/24 13:22
infection
�Medication �Instructions �Recorded
cyanocobalamin (vitamin B-12) 3,000 mcg PO DAILY Supplement 06/03/24
1,000 mcg tablet
gabapentin 300 mg capsule 300 mg PO HS Neurological Condition 06/03/24
memantine 10 mg tablet 10 mg PO BID Alzheimer's 06/03/24
midodrine 10 mg tablet 10 mg PO BID@0800,1200 Blood 06/03/24
Pressure
primidone 50 mg tablet 50 mg PO HS Neurological Condition 06/03/24
turmeric 400 mg capsule 1,500 mg PO DAILY 06/03/24
risedronate 30 mg tablet 30 mg PO TU Osteoporosis 06/20/24
mirtazapine 15 mg tablet 15 mg PO HS #30 tabs 06/24/24
polyethylene glycol 3350 17 gram 17 g PO BID #100 ea 06/24/24
oral powder packet (HealthyLax)
sodium phosphates 19 gram-7 118 ml NH ONCE 07/20/24
gram/118 mL enema (Fleet Enema)
Review of Systems
-
All other systems: A 12 pt ROS was Negative except as stated above in HPI
Vital Signs
Temp Pulse Resp BP Pulse Ox
98.0 F 59 16 137/69 94
09/17/24 11:26 09/17/24 11:26 09/17/24 11:26 09/17/24 11:26 09/17/24 11:26
Physical Exam
Exam
Respiratory: Clear
Cardiac: S1/S2 and Regular Rhythm
GI: Soft, Non Tender, Non Distended and Normal Bowel Sounds
Neuro: AO x 3
Results
WBC 7.8 10^3/uL (4.8-10.8) 09/17/24 13:08
Hgb 11.9 g/dL (12.0-16.0) L 09/17/24 13:08
Hct 34.8 % (37.0-47.0) L 09/17/24 13:08
MCV 96.9 fL (81.0-99.0) 09/17/24 13:08
Plt Count 270 10^3/uL (130-400) 09/17/24 13:08
Absolute Neuts (auto) 5.7 10^3/uL (1.4-6.5) 09/17/24 13:08
Sodium 140 mmol/L (135-145) 09/17/24 13:08
Potassium 3.8 mmol/L (3.5-5.1) 09/17/24 13:08
Chloride 102 mmol/L (98-107) 09/17/24 13:08
Carbon Dioxide 31 mmol/L (22-30) H 09/17/24 13:08
BUN 15 mg/dl (7-17) 09/17/24 13:08
Creatinine 0.6 mg/dL (0.6-1.0) 09/17/24 13:08
Calcium 9.7 mg/dl (8.4-10.2) 09/17/24 13:08
Total Bilirubin 0.5 mg/dl (0.2-1.3) 09/17/24 13:08
AST 29 U/L (14-36) 09/17/24 13:08
ALT 21 U/L (0-35) 09/17/24 13:08
Alkaline Phosphatase 90 U/L (38-126) 09/17/24 13:08
[facility]
[address] [place] [address]

Patient Name: SASHA CASTANO
: 1945
Unit Number: [id number]
Age: 79/Gender: F
Patient
Location: [address] [place] [address]
Medical Records
Signed
~~REPORT ADDENDUM~~
I saw and examined the patient.
The SOAP MAKER or PA's note was reviewed and I agree with the note.
Comment: 79 yo F pmh as below well known to Dr. Hinojosa previously had diarrhea. P/w weakness and inability to care for herself. 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
Plan for X-ray in AM to assess stool burden. No stool in vault on exam.
If no extensive stool burden on xray ok gi pov for dc in am.
Tolerating diet.
Agree with adding miralax for bowel regimen.
Addendum dictated by: Susan Pendleton MD
Addendum dictated Date/Time: 06/22/2401/14/1757
Addendum signed by: Susan Pendleton MD
Addendum sign Date/Time: 06/22/241756
Addendum cosigned by:
Addendum cosign Date/Time: Consultation
-
Date/Time Consultation Requested: 06/21/241999
Date/Time Consultation Performed: 06/22/24 07
Requesting Provider: Darrin Malin MD
Performing Provider: TESSIE Pineda, Vibha Pendleton MD
Reason for Consultation: decreased appetite, abnormal imaging
Medical History
Chief Complaint / HPI
Chief Complaint: weakness
History of Present Illness:
Pt is a 79yo with hx IBS, depression, osteoporosis, hypercholesterolemia, colon polyps, fatty liver with recent admission with persistent diarrhea with intermittent symptoms for months. She has been at [facility] with neg CT and abd imaging.
Prior review of chart with work up with Dr. Hinojosa in past with neg celiac and neg bx for microscopic colitis. She has been treated with Xifaxan in past with improvement. She denies any recent travel abx or sick contacts. She was seen in early
May in GI office then admitted to 06/03- 06/17. Stool studies were negative with normal fecal fat and pancreatic elastase. Abd X ray with Air distention in colon retained contrast and diverticulosis. She was given electrolyte replacement and
recommended Questran and Remeron but unable to fill Remeron. She now returns with weakness and inability to care for self. On admission repeat CT with concern for distention of rectum and suggest stercoral colitis with moderate stool in rest of
colon. She was given MOM enema with several stools. Prior colonoscopy 2021 with neg microscopic colitis.
Since admission she states she is feeling improved. She complains of dizziness which is chronic with standing. she reports chronic irregular bowels for years with diarrhea and constiaption. She denies dysphagia, GERD, nausea, vomiting,
abdominal pain, blood or black in stools.
Past Medical History
Past Medical History: Hypercholesterolemia, Psychiatric (mild dementia, anxiety, depression, osteoposis, colon polyps, osteoporosis, anemia ) and Other (osteoporosis, IBS, scoliosis, diverticulosis, anemia, fatty liver, colon polyps, )
Past Surgical History: Other (finger surgery, cyst behind knee removal)
Social History
Tobacco: Non-Smoker
Alcohol: Daily (1 drink daily)
Drug: None
Personal:
Living: With Family
Employment: Retired
Family History
Family History: Other (no family hx colon CA or polyps)
Allergies / Home Medications
Allergy/AdvReac Type Severity Reaction Status Date / Time
tetracycline [Tetracycline] Allergy yeast Verified 06/20/24 13:22
infection
�Medication �Instructions �Recorded
cyanocobalamin (vitamin B-12) 3,000 mcg PO DAILY Supplement 06/03/24
1,000 mcg tablet
gabapentin 300 mg capsule 300 mg PO HS Neurological Condition 06/03/24
memantine 10 mg tablet 10 mg PO BID Alzheimer's 06/03/24
midodrine 10 mg tablet 10 mg PO BID@0800,1200 Blood 06/03/24
Pressure
primidone 50 mg tablet 50 mg PO HS Neurological Condition 06/03/24
turmeric 400 mg capsule 1,500 mg PO DAILY 06/03/24
cholestyramine (with sugar) 4 gram 4 g PO TID #60 ea 06/07/24
powder for susp in a packet
loperamide 2 mg capsule 2 mg PO BIDPRN PRN diarrhea #10 06/07/24
caps
risedronate 30 mg tablet 30 mg PO TU Osteoporosis 06/20/24
Review of Systems
-
Unable to obtain full review of systems at this time due to: Dementia
History Source: Patient
Constitutional: Reports Weight Loss (with diarrhea ) and Other (feeling cold/chills )
EENT: Reports No Symptoms
Respiratory: Reports No Symptoms
Cardiac: Reports No Symptoms
Abdomen/GI: Reports Diarrhea and Constipated
: Reports No Symptoms
Musculoskeletal: Reports No Symptoms
Skin: Reports No Symptoms
Neurological: Reports Dizzy and Weakness
Endocrine: Reports No Symptoms
Hematologic/Lymphatic: Reports No Symptoms
Vital Signs
Temp Pulse Resp BP Pulse Ox
98.1 F 68 16 102/46 96
06/21/24 23:00 06/22/24 05:25 06/21/24 23:00 06/22/24 05:25 06/22/24 05:25
Physical Exam
Exam
General: Well Developed, Well Nourished and No Apparent Distress
HEENT: Normocephalic and Anicteric
Respiratory: Clear
Cardiac: Regular Rhythm
GI: Soft and Distended (minimal )
Rectal: Other (no impaction, minimal brown liquid stool )
Musculoskeletal: No Clubbing and No Cyanosis
Skin: Warm and Dry
Neuro: Awake, Alert and Other (forgetful to some questions)
Psych: Calm
Results
WBC 7.4 10^3/uL (4.8-10.8) 06/21/24 04:26
Hgb 10.7 g/dL (12.0-16.0) L 06/21/24 04:26
Hct 30.2 % (37.0-47.0) L 06/21/24 04:26
MCV 94.4 fL (81.0-99.0) 06/21/24 04:26
Plt Count 212 10^3/uL (130-400) 06/21/24 04:26
Absolute Neuts (auto) 10.3 10^3/uL (1.4-6.5) H 06/20/24 13:29
Sodium 139 mmol/L (135-145) 06/21/24 04:26
Potassium 4.2 mmol/L (3.5-5.1) 06/21/24 04:26
Chloride 108 mmol/L (98-107) H 06/21/24 04:26
Carbon Dioxide 28 mmol/L (22-30) 06/21/24 04:26
BUN 6 mg/dl (7-17) L 06/21/24 04:26
Creatinine 0.7 mg/dL (0.6-1.0) 06/21/24 04:26
Calcium 9.0 mg/dl (8.4-10.2) 06/21/24 04:26
Total Bilirubin 0.5 mg/dl (0.2-1.3) 06/21/24 04:26
AST 42 U/L (14-36) H 06/21/24 04:26
ALT 57 U/L (0-35) H 06/21/24 04:26
Alkaline Phosphatase 60 U/L (38-126) 06/21/24 04:26
Lipase 125 U/L (23-300) 06/20/24 13:29
Diagnostic Image Results:
06/21/24 CT Abd/pelvis W Iv Cont
Distention of the rectum with stool. There is surrounding perirectal edema. Findings are highly suggestive of stercoral colitis.
No evidence for perforation. No evidence of free intraperitoneal air.
Moderate amount of stool in the rest of the colon.
Colonic diverticula with no CT evidence for diverticulitis. The appendix appears normal.
Prominent left periuterine veins with prominent enhancement of the left gonadal vein.
Bony degenerative changes as described.
05/31/24 abd X ray
1. Mild air distention of most of the colon.
2. Contrast material in the descending colon, sigmoid colon, and rectum.
3. Severe diverticulosis in the sigmoid colon.
4. Severe multilevel discogenic degenerative disease in the lumbar spin
Prior GI Procedures:
EGD: 08/2022- [facility] - No gross lesions in the entire esophagus.
- Z-line regular, 38 cm from the incisors.
- Small hiatal hernia.
- Erythematous mucosa in the antrum. Biopsied.
- Normal examined duodenum. Biopsied.
bx neg metaplasia, neg H pylori no lymphcytes
Colonoscopy: 08/2022 [facility] - The examined portion of the ileum was normal.
- Tortuous colon.
- Normal mucosa in the entire examined colon. Biopsied.
- Two 1 to 2 mm polyps in the rectum, removed with a
jumbo cold forceps. Resected and retrieved.
- Diverticulosis in the sigmoid colon.
bx HP polyp melanosis coli, neg acute or colangenous colitis
Assessment / Plan
-
Pt is a 79yo with hx IBS, depression, osteoporosis, hypercholesterolemia, colon polyps, fatty liver with recent admission with persistent diarrhea with intermittent symptoms for months. Subsequent flexible sigmoidoscopy after last visit showing
microscopic colitis, treated with budesonide, currently on it but still continues to have symptoms. She has been at [facility] with neg CT and abd imaging May 2024. Prior review of chart with work up with neg celiac and neg bx for microscopic
colitis. She has been treated with Xifaxan in past with improvement. She denies any recent travel abx or sick contacts. She was seen in early May in GI office then admitted to 06/03- 06/17. Stool studies were negative with normal fecal fat
and pancreatic elastase. Abd X ray with Air distention in colon retained contrast and diverticulosis. She was given electrolyte replacement and recommended Questran and Remeron but unable to fill Remeron. She now returns with weakness and
inability to care for self. Last visit CT with concern for distention of rectum and suggest stercoral colitis with moderate stool in rest of colon. She was given MOM enema with several stools. Prior colonoscopy 2021 with neg microscopic
colitis.
Impression
hx Functional diarrhea
Stool studies negative last admission
EGD/colon done in 2021 without cause found
-anemia
-elevated transaminase
-dizziness
other medical problems:
- dementia
-depression
-osteoporosis
-hypercholesterolemia
-colon polyps
Plan
Unclear if this is truly diarrhea related to microscopic colitis versus overflow diarrhea.
Previous exhaustive workup negative for other sources of diarrhea.
No significant weight loss this admission.
Will get abdominal x-ray to evaluate for overflow diarrhea but will also check VIP, gastrin and chromogranin A levels.
Monitor stool during hospital visit.
Will follow-up
-
-
Thank you for consultation and allowing me to participate in the patient's care. Please call the production estimator GI physician during the after hours with any questions or concerns.
--- NOTE | 2024-09-17 15:35 | HPS.HSE ---
Addendum entered and electronically signed by Nacho Quiroz MD 09/17/24 16:06:
Reported daily alcohol consumption.
Monitor closely
Start MSAs protocol
Thiamine
Original Note:
Family Physician
-
Family Physician: Maris Loza
Chief Complaint
-
Persistent diarrhea
History of Present Illness
Patient is a 79 years old female with a known diagnosis of microscopic colitis, dementia, ambulatory dysfunction who presents to the emergency room from gastroenterology office. Patient with history of chronic diarrhea, admission to the hospital
07/14 with initial diagnosis of stercoral colitis and then follow-up sigmoidoscopy as outpatient with biopsy positive for microscopic lymphocytic colitis. Patient with multiple imaging in the past and negative workup for infectious causes now
presents with persistent diarrhea while was initiated on budesonide. Patient denies any nausea or vomiting. Denies fever. Denies any recent travel or antibiotic administration. She complains of persistent diarrhea with multiple watery bowel
movements a day. She is generally weak.
Medical History
Past Medical History
Past Medical History: Reports Other (Microscopic colitis. Dementia. Depression. Dyslipidemia. Osteoporosis.)
Past Surgical History: Reports None
Social History
Tobacco: Non-smoker
Alcohol: Occasional
Drug: None
Personal:
Living: With Family
Employment: Not Employed
Family History
Family History: Not pertinent
Allergies / Home Medications
Allergies reflects when Allergies were last updated in [facility].
Home Medications with original date entered in [facility]
Allergy/Medication List:
Allergies
Allergy/AdvReac Type Severity Reaction Status Date / Time
tetracycline [Tetracycline] Allergy yeast Verified 06/20/24 13:22
infection
Home Medications
gabapentin 300 mg capsule 300 mg PO BID Neurological Condition 06/03/24
memantine 10 mg tablet 10 mg PO BID Alzheimer's 06/03/24
midodrine 10 mg tablet 10 mg PO TID Blood Pressure 06/03/24
primidone 50 mg tablet 50 mg PO HS Neurological Condition 06/03/24
turmeric 400 mg capsule 500 mg PO BID 06/03/24
risedronate 30 mg tablet 30 mg PO TU Osteoporosis 06/20/24
budesonide 3 mg capsule,delayed,extended release 3 mg PO TID 09/17/24
cholecalciferol (vitamin D3) 25 mcg (1,000 unit) tablet (Vitamin D3) 25 mcg PO DAILY 09/17/24
cyanocobalamin (vitamin B-12) 3,000 mcg sublingual lozenge 3,000 mcg sublingual MOWEFR 09/17/24
therapeutic multivitamin 1 tab PO DAILY 09/17/24
Review of Systems
-
A 12 point ROS was completed and negative except as noted: Yes
Physical Exam
Vital Signs
Vital Signs
Temp Pulse Resp BP Pulse Ox
98.0 F 65 18 165/70 96
09/17/24 11:26 09/17/24 15:00 09/17/24 15:00 09/17/24 15:00 09/17/24 15:00
Physical Exam
General: Well Developed, Well Nourished and No Apparent Distress
HEENT: NormoCephalic, Moist mucous membranes and Atraumatic
Respiratory: Clear
Cardiac: S1/S2 and Regular Rhythm; No Murmur or Rub
GI: Soft, Non Tender, Non Distended and Normal Bowel Sounds; No Organomegaly
Rectal: Deferred by Provider
Musculoskeletal: No Clubbing, No Cyanosis and No Edema
Skin: No Rash
Neuro: Nonfocal/grossly intact
Laboratory Results
-
09/17/24 13:08
09/17/24 13:08
Laboratory Results
Total Bilirubin 0.5 mg/dl (0.2-1.3) 09/17/24 13:08
AST 29 U/L (14-36) 09/17/24 13:08
ALT 21 U/L (0-35) 09/17/24 13:08
Alkaline Phosphatase 90 U/L (38-126) 09/17/24 13:08
Impression/Plan
-
Impression:
Persistent diarrhea.
Microscopic colitis
Other conditions:
Dementia
Depression.
Osteoporosis.
Dyslipidemia
PLAN:
Presentation with persistent diarrhea
Microscopic colitis by sigmoidoscopy pathology 07/14 on budesonide.
Severe protein calorie malnutrition.
Abdominal x-ray with no suggestion of overflow diarrhea
GI consultation.
Additional study for gastrinoma ordered.
Repeat stool studies and stool for C. difficile (less likely)
Trial of regular diet
Consider reintroduce antidiarrheal agents (Questran)
Continue budesonide
Monitor oral intake
Nutrition consult
Chronic hypotension per
Monitor BP.
Continue midodrine
Dementia/depression
Continue preadmission regimen including memantine, Neurontin, primidone
Ambulatory dysfunction
Recent fall with sacral fracture.
Physical therapy assessment
[2024-09-17] MEDS: HEPARIN 5000 UNITS SC (20:28)
[2024-09-17] MEDS: NEURONTIN 300 MG PO (20:29)
[2024-09-17] MEDS: NAMENDA 10 MG PO (20:29)
[2024-09-17] MEDS: THIAMINE INJECTION 200 MG IV (20:43)
[2024-09-17] MEDS: ENTOCORT EC 3 MG PO (22:11)
[2024-09-17] MEDS: MYSOLINE 50 MG PO (22:11)
[2024-09-18] VITALS (17 sets, daily range): BP systolic 112–150; BP diastolic 47–81; BMI 16.7
[2024-09-18] MEDS: NAMENDA 10 MG PO ×2 (08:59→22:10)
[2024-09-18] MEDS: THERAGRAN 1 TABLET PO (08:59)
[2024-09-18] MEDS: ProAmatine 10 MG PO ×2 (08:59→12:24)
[2024-09-18] MEDS: THIAMINE INJECTION 200 MG IV ×2 (08:59→22:10)
[2024-09-18] MEDS: HEPARIN 5000 UNITS SC ×2 (09:00→22:07)
[2024-09-18] MEDS: ENTOCORT EC 3 MG PO ×3 (09:44→22:09)
[2024-09-18] MEDS: VITAMIN D3 (cholecalciferol) 25 MCG PO (09:44)
[2024-09-18] MEDS: NEURONTIN PO (09:45)
--- NOTE | 2024-09-18 10:46 | W.PN.HOSP.TC ---
Today's Communication/Plan
-
Workup For acute on chronic diarrhea.
Follow electrolytes
Continue regular diet
Physical therapy assessment
Assessment / Plan
Assessment / Plan
Impression:
Persistent diarrhea.
Microscopic colitis
Reported daily alcohol consumption
Other conditions:
Dementia
Depression.
Osteoporosis.
Dyslipidemia
PLAN:
Presentation with persistent diarrhea
Microscopic colitis by sigmoidoscopy pathology 07/14 on budesonide.
Severe protein calorie malnutrition.
Abdominal x-ray with no suggestion of overflow diarrhea
GI consultation.
Additional study for gastrinoma ordered.
Repeat stool studies and stool for C. difficile (less likely)
Trial of regular diet
Consider reintroduce antidiarrheal agents (Questran)
Continue budesonide
Monitor oral intake
Nutrition consult
Reported daily alcohol consumption.
Continue MSAS monitoring.
Continue thiamine
Chronic hypotension
Monitor BP.
Continue midodrine
Dementia/depression
Continue preadmission regimen including memantine, Neurontin, primidone
Ambulatory dysfunction
Recent fall with sacral fracture.
Physical therapy assessment
Anticipated Discharge: 24 - 48 hours
Subjective/Interval History
-
Date of Service: September 18, 2024
Objective Data
-
Labs:
Laboratory Results
09/18/24
10:35
WBC Pending
Hgb Pending
Hct Pending
Plt Count Pending
Sodium Pending
Potassium Pending
Chloride Pending
Carbon Dioxide Pending
BUN Pending
Creatinine Pending
Glucose Pending
Calcium Pending
Vital Signs:
Vital Signs
Temp Pulse Resp BP Pulse Ox
98.2 F 66 16 133/67 96
09/18/24 07:30 09/18/24 07:30 09/18/24 07:30 09/18/24 08:59 09/18/24 07:30
Physical Exam
-
General: Well Developed and No Apparent Distress
HEENT: Normocephalic, Atraumatic and Moist Mucous Membranes
Respiratory: Clear to Auscultation
Cardiac: Regular Rhythm and S1/S2; Negative Murmur, Rub or Gallop
GI: Soft, Nontender, Nondistended and Normal Bowel Sounds; Negative Organomegaly
Rectal: Deferred by Provider
Musculoskeletal: No Clubbing, No Cyanosis and No Edema
Skin: Negative Rash
Neuro: Nonfocal/Grossly Intact
[2024-09-18 12:44] LABS: % Basophils 0.6 % (0-2); % Eosinophils 1.2 % (0-6); % Immature Granulocytes 0.1 % (0-0.5); % Monocytes 5.9 % (1.7-9.3); % Neutrophils 77.2 % (42.2-75.2); Absolute Eosinophils 0.1 10^3/uL (0-0.7); Absolute Monocytes 0.4 10^3/uL (0.1-0.6); Absolute Neutrophils 5.3 10^3/uL (1.4-6.5); Hematocrit 33.9 % (37.0-47.0); Hemoglobin 11.8 g/dL (12.0-16.0); Mean Corp Hgb Conc. 34.8 g/dL (33.0-37.0); Mean Corpuscular Hgb 34.7 pg (27.0-31.0); Mean Corpuscular Volume 99.7 fL (81.0-99.0); Mean Platelet Volume 9.3 fL (7.4-10.4); Nucleated Red Blood Cells % 0 %; Platelet Count 257 10^3/uL (130-400); White Blood Cell Count 6.8 10^3/uL (4.8-10.8)
[2024-09-18 13:00] LABS: Blood Urea Nitrogen 10 mg/dl (7-17); Calcium 9.3 mg/dl (8.4-10.2); Carbon Dioxide 33 mmol/L (22-30); Chloride 100 mmol/L (98-107); Estimated Creatinine Clearance 48 ml/min; Glucose 144 mg/dl (70-99); Potassium 3.1 mmol/L (3.5-5.1); Sodium 141 mmol/L (135-145); eGFR > 60.00
--- NOTE | 2024-09-18 14:26 | W.PN.GI.CBS2 ---
Addendum entered and electronically signed by Stacey Gómez MD 09/18/24 17:55:
I saw and examined the patient.
The FRAME POLISHER's note was reviewed and I agree with the note.
Patient continues to have loose stools this a.m. Denies any abdominal pain/nausea/vomiting. Previously had extensive workup with Dr. Hinojosa as outpatient. Recent Flexible sigmoidoscopy biopsy was suggestive of possible microscopic colitis. Prior
colonoscopy 2021- bx negative for microscopic colitis
plan
Continue budesonide 9 mg daily
Follow-up secretory diarrhea workup ordered
Lactose-free low residual diet
Adequate hydration
Stool chart with frequency
Patient complains of fecal incontinence. Patient requires outpatient anorectal manometry for further evaluation
Original Note:
Today's Communication / Plan
-
abd films with normal amount of stool no overflow noted at this time
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
gastrin, VIP and calcitonin neg and repeat stool studies pending
cont Budesonide 3mg TID
reviewed prior work up as above
change to low residue/low lactose diet
I asked nursing to record all stools for consistence and volume
consider OP anal rectal manometry and work up for fecal incontinence as part of her problem-- In review with patient issues for years-- per family mobility is worse and recent pelvic fracture would be incontinence issue is worse as pt unable to get
to bathroom as she did in past.
I reviewed meds--- meds--Namanda 5 % risk of diarrhea, neurotin 6%, Risedronate weekly 5-20 % diarrhea -- may need to consider stopping for period of time to see if any improvement
I also reiewed diet-- eats ice cream daily at night -- advance to stop for a few week to see if any improvement
Assessment / Plan
-
Pt is a 79yo with hx IBS, depression, osteoporosis, hypercholesterolemia, colon polyps, fatty liver with recent admission with persistent diarrhea with intermittent symptoms for months. Subsequent flexible sigmoidoscopy after last visit showing
microscopic colitis, treated with budesonide, currently on it but still continues to have symptoms. She has been at [facility] with neg CT and abd imaging May 2024. Prior review of chart with work up with neg celiac and neg bx for microscopic
colitis. She has been treated with Xifaxan in past with improvement. She denies any recent travel abx or sick contacts. She was seen in early May in GI office then admitted to 06/03- 06/17. Stool studies were negative with normal fecal fat
and pancreatic elastase. Abd X ray with Air distention in colon retained contrast and diverticulosis. She was given electrolyte replacement and recommended Questran and Remeron but unable to fill Remeron. She now returns with weakness and
inability to care for self. Last visit CT with concern for distention of rectum and suggest stercoral colitis with moderate stool in rest of colon. She was given MOM enema with several stools. Prior colonoscopy 2021 with neg microscopic
colitis.
12/2021 celiac neg
05/2024 fecal fat normal
05/2024 stool studies neg x2
05/2024 fecal elastase 195 normal
04/2024 TSH normal
08/2024 VIP, calcitonin, chromogranin A pending
08/2024 stool studies neg c-diff cx pending
meds--Namanda 5 % risk of diarrhea, neurotin 6%, Risedronate weekly 5-20 % diarrhea
denies OTC medications
07/20/24 flex sig normal mucosa, stool in descending, diverticulosis, -- concern for overflow diarrhea not true diarrhea recommended to avoid imodium
bx with microscopic colitis vs less likely infection vs ischemia
2021 colonoscopy tortuous colon, normal mucosa, polyps rectum bx HP polyp, melanosis coli, bx neg
09/17 obs series-
1. No radiographic evidence for bowel obstruction or pneumoperitoneum.
2. Mild bilateral lung hyperinflation.
3. Severe multilevel lower lumbar discogenic degenerative disease.
4. There appears be a normal volume of fecal material throughout the colon
Impression
acute on chronic Functional diarrhea
decreased rectal tone/fecal incontinence
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
suspected overflow diarrhea on prior flex in June
-anemia
-elevated transaminase-- now normal
-dizziness/hypotension/orthostasis
other medical problems:
- dementia
-depression
-osteoporosis
-hypercholesterolemia
-colon polyps
Plan
abd films with normal amount of stool no overflow noted at this time
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
gastrin, VIP and calcitonin neg and repeat stool studies pending
cont Budesonide 3mg TID
reviewed prior work up as above
change to low residue/low lactose diet
I asked nursing to record all stools for consistence and volume
consider OP anal rectal manometry and work up for fecal incontinence as part of her problem-- In review with patient issues for years-- per family mobility is worse and recent pelvic fracture would be incontinence issue is worse as pt unable to get
to bathroom as she did in past.
I reviewed meds--- meds--Namanda 5 % risk of diarrhea, neurotin 6%, Risedronate weekly 5-20 % diarrhea -- may need to consider stopping for period of time to see if any improvement
I also reiewed diet-- eats ice cream daily at night -- advance to stop for a few week to see if any improvement
Subjective
Subjective
Date of Service: September 18, 2024
Pt admits to continued diarrhea no stool recorded-- reviewed with patient longstanding loose stool and also stool incontinence--
Objective
Data Reviewed
Laboratory Data:
Laboratory Results
09/18/24 12:27
09/18/24 12:27
Laboratory Results
Total Bilirubin 0.5 mg/dl (0.2-1.3) 09/17/24 13:08
AST 29 U/L (14-36) 09/17/24 13:08
ALT 21 U/L (0-35) 09/17/24 13:08
Alkaline Phosphatase 90 U/L (38-126) 09/17/24 13:08
Vital Signs and I&O:
Vital Signs
Temp Pulse Resp BP Pulse Ox
98.2 F 66 16 124/61 96
09/18/24 07:30 09/18/24 12:24 09/18/24 07:30 09/18/24 12:24 09/18/24 07:30
Physical Exam
Physical Exam
HEENT: Anicteric and Moist mucous membranes
Cardiology: Normal Sinus Rhythm
Pulmonary: Clear
GI: Soft, Non Distended and Non Tender
Rectal: Other (brown loose heme neg stool decreased sphincter tone )
Extremities: No Edema
Neuro: Non Focal
[2024-09-18] MEDS: KCL 40 MEQ PO (16:25)
[2024-09-18] MEDS: ProAmatine PO (16:27)
--- NOTE | 2024-09-18 16:31 | PTCARENOTE ---
received pt to 3W, room 324, oriented to room, VS taken, assessment complete, call kendall within reach, bed in lowest position, dinner and breakfast ordered, follow plan of care
[2024-09-18] MEDS: NEURONTIN 300 MG PO (22:09)
[2024-09-18] MEDS: MYSOLINE 50 MG PO (22:11)
[2024-09-18] MEDS: FLUSH (NSS) 1 FLUSH IV (22:11)
[2024-09-19 03:06] VITALS: BP 140/71
[2024-09-19 07:00] VITALS: BP 143/73
[2024-09-19] MEDS: ENTOCORT EC 3 MG PO ×2 (08:35→16:30)
[2024-09-19] MEDS: THERAGRAN 1 TABLET PO (08:35)
[2024-09-19] MEDS: NEURONTIN 300 MG PO (08:35)
[2024-09-19] MEDS: THIAMINE INJECTION 200 MG IV (08:35)
[2024-09-19] MEDS: VITAMIN D3 (cholecalciferol) 25 MCG PO (08:36)
[2024-09-19] MEDS: ProAmatine PO ×2 (08:36→14:35)
[2024-09-19] MEDS: HEPARIN 5000 UNITS SC (08:36)
[2024-09-19] MEDS: NAMENDA 10 MG PO (08:36)
[2024-09-19] MEDS: VISBIOME 2 CAP PO (08:44)
[2024-09-19] MEDS: IMODIUM 2 MG PO (08:47)
[2024-09-19] MEDS: VITAMIN B-12 3000 MCG PO (09:25)
[2024-09-19 11:44] LABS: Blood Urea Nitrogen 8 mg/dl (7-17); Calcium 9.6 mg/dl (8.4-10.2); Carbon Dioxide 31 mmol/L (22-30); Chloride 102 mmol/L (98-107); Estimated Creatinine Clearance 55 ml/min; Glucose 98 mg/dl (70-99); Potassium 3.8 mmol/L (3.5-5.1); Sodium 140 mmol/L (135-145); eGFR > 60.00
--- NOTE | 2024-09-19 12:43 | CM ---
Addendum entered by Sharifa Candelario 09/19/24 15:40:
Reviewed [facility] Quiroz- ready for dc pending GI
Plan for home with [facility]
Referral and order faxed [phone]
Original Note:
CM attempted call to spouse- no answer
Call with dtr/Delfina
Pt and spouse resides in a 2 bedroom apartment at [facility]
Pt is indep with ambulation with use of a WW, typically able to perform self care
Spouse helping more lately
Pt current with [facility]
Dtr notes slight memory issues and sundowning at times
No financial insecurities
[employer]- Maris Loza
Rx- [facility]
Therapy following with [facility]N recs
Plan for [facility] with [facility] on dc
[facility] (p) [phone] (f) [phone]
Discharge Disposition- home with [facility]
[2024-09-19] MEDS: QUESTRAN 4 GRAM PO (14:48)
[2024-09-19 15:00] VITALS: BP 104/51
--- NOTE | 2024-09-19 15:18 | W.PN.GI.CBS2 ---
Today's Communication / Plan
-
abd films with normal amount of stool no overflow noted at this time
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
gastrin, VIP and calcitonin neg and repeat stool studies pending
cont Budesonide 3mg TID for now though may have secondary cause of diarrhea
low residue/low lactose diet
protbiotics added
for discharge today
her biggest complaint is incontinence and fecal stooling on pads
consider OP anal rectal manometry and work up for fecal incontinence as part of her problem-- In review with patient issues for years-- per family mobility is worse and recent pelvic fracture would be incontinence issue is worse as pt unable to get
to bathroom as she did in past.
family reports current work up for parkinson as this can be adding to bowel issues
I reviewed meds--- meds--Namanda 5 % risk of diarrhea, neurotin 6%, Risedronate weekly 5-20 % diarrhea -- may need to consider stopping for period of time to see if any improvement
09/18 I also reviewed diet-- eats ice cream daily at night -- advance to stop for a few week to see if any improvement
will review with Dr. Hinojosa any role of for Eclipse if not improving
Assessment / Plan
-
Pt is a 79yo with hx IBS, depression, osteoporosis, hypercholesterolemia, colon polyps, fatty liver with recent admission with persistent diarrhea with intermittent symptoms for months. Subsequent flexible sigmoidoscopy after last visit showing
microscopic colitis, treated with budesonide, currently on it but still continues to have symptoms. She has been at [facility] with neg CT and abd imaging May 2024. Prior review of chart with work up with neg celiac and neg bx for microscopic
colitis. She has been treated with Xifaxan in past with improvement. She denies any recent travel abx or sick contacts. She was seen in early May in GI office then admitted to 06/03- 06/17. Stool studies were negative with normal fecal fat
and pancreatic elastase. Abd X ray with Air distention in colon retained contrast and diverticulosis. She was given electrolyte replacement and recommended Questran and Remeron but unable to fill Remeron. She now returns with weakness and
inability to care for self. Last visit CT with concern for distention of rectum and suggest stercoral colitis with moderate stool in rest of colon. She was given MOM enema with several stools. Prior colonoscopy 2021 with neg microscopic
colitis.
12/2021 celiac neg
05/2024 fecal fat normal
05/2024 DH stool studies neg x2
05/2024 fecal elastase 195 normal
04/2024 TSH normal
06/2024 flex with ? microscopic colitis Budesonide added
08/2024 VIP, calcitonin, chromogranin A pending
08/2024 DH stool studies neg c-diff cx pending
08/2024 OP stool studies neg
08/2024 probiotics added
meds--Namanda 5 % risk of diarrhea, neurotin 6%, Risedronate weekly 5-20 % diarrhea
denies OTC medications
07/20/24 flex sig normal mucosa, stool in descending, diverticulosis, -- concern for overflow diarrhea not true diarrhea recommended to avoid imodium
bx with microscopic colitis vs less likely infection vs ischemia
2021 colonoscopy tortuous colon, normal mucosa, polyps rectum bx HP polyp, melanosis coli, bx neg
09/17 obs series-
1. No radiographic evidence for bowel obstruction or pneumoperitoneum.
2. Mild bilateral lung hyperinflation.
3. Severe multilevel lower lumbar discogenic degenerative disease.
4. There appears be a normal volume of fecal material throughout the colon
Impression
acute on chronic Functional diarrhea
decreased rectal tone/fecal incontinence
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
suspected overflow diarrhea on prior flex in June
-anemia
-elevated transaminase-- now normal
-dizziness/hypotension/orthostasis
other medical problems:
- dementia
-depression
-osteoporosis
-hypercholesterolemia
-colon polyps
Plan
abd films with normal amount of stool no overflow noted at this time
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
gastrin, VIP and calcitonin neg and repeat stool studies pending
cont Budesonide 3mg TID for now though may have secondary cause of diarrhea
low residue/low lactose diet
probiotics added
for discharge today
her biggest complaint is incontinence and fecal stooling on pads
consider OP anal rectal manometry and work up for fecal incontinence as part of her problem-- In review with patient issues for years-- per family mobility is worse and recent pelvic fracture would be incontinence issue is worse as pt unable to get
to bathroom as she did in past.
family reports current work up for parkinson as this can be adding to bowel issues
I reviewed meds--- meds--Namanda 5 % risk of diarrhea, neurotin 6%, Risedronate weekly 5-20 % diarrhea -- may need to consider stopping for period of time to see if any improvement
09/18 I also reviewed diet-- eats ice cream daily at night -- advance to stop for a few week to see if any improvement
will review with Dr. Hinojosa any role of for Eclipse if not improving
Subjective
Subjective
Date of Service: September 19, 2024
better day today noted 09/18-09/09 yellow brown gelatinous stool on low lactose diet
Objective
Data Reviewed
Laboratory Data:
Laboratory Results
09/18/24 12:27
09/19/24 11:07
Laboratory Results
Total Bilirubin 0.5 mg/dl (0.2-1.3) 09/17/24 13:08
AST 29 U/L (14-36) 09/17/24 13:08
ALT 21 U/L (0-35) 09/17/24 13:08
Alkaline Phosphatase 90 U/L (38-126) 09/17/24 13:08
Vital Signs and I&O:
Vital Signs
Temp Pulse Resp BP Pulse Ox
97.9 F 76 18 140/66 97
09/19/24 07:00 09/19/24 14:35 09/19/24 07:00 09/19/24 14:35 09/19/24 07:00
I&O
09/18/24 09/19/24 09/20/24
06:59 06:59 06:59
Intake Total 480 / 480
Output Total 100 / 100
Balance 380 / 380
Physical Exam
Physical Exam
HEENT: Anicteric and Moist mucous membranes
Cardiology: Normal Sinus Rhythm
Pulmonary: Clear
GI: Soft, Non Distended and Non Tender
Extremities: No Edema
Neuro: Non Focal
[2024-09-19 15:36] VITALS: BMI 16.7
--- NOTE | 2024-09-19 15:58 | W.DS.TRANS ---
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
-
Discharge Instructions:
Discharge Diagnosis/Procedures Chronic diarrhea
Diet Low Residue
Additional Diets Low lactose
Instructions:
Stand-Alone Forms:
Changes to Home Medications: No
Discharge Medications:
DC Medications w/original date entered in [facility]
gabapentin 300 mg capsule 300 mg PO BID Neurological Condition 06/03/24
memantine 10 mg tablet 10 mg PO BID memory/cognition 06/03/24
midodrine 10 mg tablet 10 mg PO TID Blood Pressure 06/03/24
primidone 50 mg tablet 50 mg PO HS Neurological Condition 06/03/24
turmeric 400 mg capsule 500 mg PO BID Supplement 06/03/24
risedronate 30 mg tablet 30 mg PO TU Osteoporosis 06/20/24
budesonide 3 mg capsule,delayed,extended release 3 mg PO TID GI issue/colitis 09/17/24
cholecalciferol (vitamin D3) 25 mcg (1,000 unit) tablet (Vitamin D3) 25 mcg PO DAILY Supplement 09/17/24
cyanocobalamin (vitamin B-12) 3,000 mcg sublingual lozenge 3,000 mcg sublingual MOWEFR Supplement 09/17/24
therapeutic multivitamin 1 tab PO DAILY Supplement 09/17/24
loperamide 2 mg capsule 2 mg PO BID #30 caps 09/19/24
Home Medication Changes
Pending Results: No
[2024-09-19] MEDS: ProAmatine 10 MG PO (16:31)
[2024-09-20 14:31] LABS: Gastrin 29 pg/mL (0-100)
[2024-09-20 15:39] LABS: VIP Results 34.2 pg/mL (0.0-89.1)
== END 2024-09-19 17:11 | disposition home health service (06) | DRG 391 ==
LOC: 3 WEST ACU 15:51
PROVIDERS: Physician Assistant; ADMITTING PHYSICIAN Internal Medicine; CONSULT PHYSICIAN Internal Medicine Gastroenterology; EMERGENCY PHYSICIAN Emergency Medicine; FAMILY PHYSICIAN Nurse Practitioner Adult Health
DX: K52.839 Microscopic colitis, unspecified (principal); E43 Unspecified severe protein-calorie malnutrition; F02.A3 Dementia in other diseases classified elsewhere, mild, with mood disturbance; F02.A4 Dementia in other diseases classified elsewhere, mild, with anxiety; Z68.1 Body mass index [BMI] 19.9 or less, adult; G20.A1 Parkinson's disease without dyskinesia, without mention of fluctuations; G30.9 Alzheimer's disease, unspecified; F32.A Depression, unspecified; D64.9 Anemia, unspecified; E78.00 Pure hypercholesterolemia, unspecified; I95.89 Other hypotension; K44.9 Diaphragmatic hernia without obstruction or gangrene; K57.30 Diverticulosis of large intestine without perforation or abscess without bleeding; M81.0 Age-related osteoporosis without current pathological fracture; G25.2 Other specified forms of tremor; R26.2 Difficulty in walking, not elsewhere classified; R42 Dizziness and giddiness; Z79.899 Other long term (current) drug therapy; Z87.19 Personal history of other diseases of the digestive system; Z86.0100 Personal history of colon polyps, unspecified; Z88.1 Allergy status to other antibiotic agents; Z87.81 Personal history of (healed) traumatic fracture
CPT/HCPCS: 74022; 80048; 80053; 82941; 84586; 85025; 86316; 87045; 87046; 87324; 87427; 87449; 89055; 96360; 97162; 99285

== ENCOUNTER 2024-12-01 13:41 | Emergency (ER) | payer MEDICARE, OTHER, SELFPAY ==
[2024-12-01] VITALS (7 sets, daily range): BP systolic 101–140; BP diastolic 61–84; BMI 15.3
[2024-12-01 14:39] LABS: % Basophils 0.2 % (0-2); % Eosinophils 0.1 % (0-6); % Immature Granulocytes 0.2 % (0-0.5); % Lymphocytes 14.8 % (20.5-51.1); % Monocytes 7.2 % (1.7-9.3); % Neutrophils 77.5 % (42.2-75.2); Absolute Lymphocytes 1.3 10^3/uL (1.2-3.4); Absolute Monocytes 0.6 10^3/uL (0.1-0.6); Absolute Neutrophils 6.5 10^3/uL (1.4-6.5); Hematocrit 38.2 % (37.0-47.0); Hemoglobin 13.3 g/dL (12.0-16.0); Mean Corp Hgb Conc. 34.8 g/dL (33.0-37.0); Mean Corpuscular Hgb 33.8 pg (27.0-31.0); Mean Platelet Volume 9.7 fL (7.4-10.4); Nucleated Red Blood Cells % 0 %; Platelet Count 307 10^3/uL (130-400); Red Blood Cell Count 3.94 10^6/uL (4.20-5.40); Red Cell Dist. Width 12.4 % (11.5-14.5); White Blood Cell Count 8.4 10^3/uL (4.8-10.8)
[2024-12-01 14:49] LABS: ALT (SGPT) 19 U/L (0-35); AST (SGOT) 27 U/L (14-36); Albumin 4.7 g/dl (3.5-5.0); Alkaline Phosphatase 67 U/L (38-126); Blood Urea Nitrogen 18 mg/dl (7-17); Calcium 9.5 mg/dl (8.4-10.2); Carbon Dioxide 26 mmol/L (22-30); Chloride 101 mmol/L (98-107); Glucose 120 mg/dl (70-99); Sodium 139 mmol/L (135-145); Total Bilirubin 0.4 mg/dl (0.2-1.3); Total Protein 7.6 g/dl (6.3-8.2); eGFR > 60.00
--- NOTE | 2024-12-01 18:34 | ED.GENMED ---
Addendum entered and electronically signed by TESSIE Kelly 12/02/24 18:09:
Called and spoke with patient Mansoor as CT reading was slightly different then the night hawk reading. Dr. Escalante felt that there could be a component of Proctitis and colitis. Spoke with Mansoor and they have an appointment with Dr. Hinojosa
on Tuesday. States that he did give his the Miralax this morning and so far today she seems to be doing better. States that she is no laying in bed and is up. States that he also stopped all her medication as he felt that this could be part of
the problem. Cautioned him against doing this. States that he may give her her Midodrine to keep her BP up. Patient at this time does not want to start an antibiotic and will leave this up to Dr. Anaya.
Original Note:
History of Present Illness
General
Chief Complaint: Abdominal Symptoms
Source: patient
Exam Limitations: none
Time Seen by Provider: 12/01/24 18:05
History of Present Illness
History of Present Illness:
This is a 79 year old female that comes in with c/o diarrhea. States that she has had diarrhea 13/06. States that the last 3 days have been worse. States that she is not eating and the the liquid just pours out of here. States that she gets out of
bed and the soft mush and liquid just drips out of here. states that she see's the GI and they have said that she is constipated. Patient had a enema a few days ago . Denies any fever, chills, chest pain, SOB, abd pain, nausea, vomiting,
headache, dizziness, urinary burning.
Past History
Past History
ED Past Medical History: HTN, Psychiatric (Anxiety) and Other (Mild dementia, Back pain, Tremors, Spastic colon)
ED Past Surgical History: None
Social History
Tobacco: Former smoker
Alcohol: Daily (1/2 glass white wine)
Personal:
Living: with family
Review of Systems
Review of Systems
Other source history: family ()
All Other Systems: ROS reviewed and negative except as documented in HPI and ROS
Constitutional: Reports no symptoms; Denies fever or chills
EENT: Reports no symptoms
Respiratory: Reports no symptoms; Denies cough or trouble breathing
Cardiac: Reports no symptoms; Denies chest pain
ABD/GI: Reports diarrhea; Denies abdominal pain, nausea or vomiting
: Reports no symptoms; Denies dysuria, frequency or urgency
Musculoskeletal: Reports no symptoms
Skin: Reports no symptoms
Neurological: Reports no symptoms; Denies dizzy or headache
Psychiatric: Reports no symptoms
Phy Exam
General Physical Exam
General Presentation: no apparent distress
General age: appears stated age
General Skin: warm and dry
General Habitus: elderly
General Mental: usual mental status
General Hydration: appears well hydrated
ENT Exam
ENT Exam: TM's normal, pharynx normal and neck supple
Eye Exam
Eye Exam: EOMI
Cardiovascular Exam
Cardiovascular Exam: regular rate/rhythm, no edema and normal peripheral pulses
Pulmonary Exam
Pulmonary Exam: lungs clear, no respiratory distress, no rales, chest non tender, no crackles, no rhonchi, no wheezing and no cough
Gastrointestinal Exam
Gastrointestinal Exam: normal bowel sounds, soft, no organomegaly, no pulsatile mass, non distended and tender (Slight left sided tenderness with palpation)
Musculoskeletal Exam
Musculoskeletal Exam: full ROM and no edema
Skin Exam
Skin Exam: normal color, warm/dry, no rash and no petechia
Psychiatric Exam
Psychiatric Exam: normal mood/affect
Course
Orders/Labs/Results
Orders:
Orders
12/01/24 14:02
Complete Blood Count/With Diff Urgent
Comprehensive Metabolic Panel Urgent
12/01/24 18:33
CT Abd/pel W Iv And Oral Contr Urgent
Comment:
Reason For Exam: left sided abd pain, diarrhea,
0.9% Sodium Chloride 1000 ml [Nss] 1,000 ml IV BOLUS
Iohexol [Omnipaque] See Protocol PO NOW STA
12/01/24 18:36
STOOL [C difficile Antigen & Toxins] Urgent
BARRY Source: Feces/Stool
Specimen Description:
Stool Culture Urgent
BARRY Source: Feces/Stool
Specimen Description:
Stool For WBC Urgent
BARRY Source: Feces/Stool
Specimen Description:
12/01/24 18:37
Norovirus by PCR Urgent
BARRY Source: Feces/Stool
Specimen Description:
12/01/24 18:42
Potassium Chloride Powder [Klor-Con] 40 meq PO NOW STA
Abnormal Lab Results
12/01/24
14:02
RBC 3.94 L 10^6/uL
(4.20-5.40)
MCH 33.8 H pg
(27.0-31.0)
Neutrophils % 77.5 H %
(42.2-75.2)
Lymphocytes % 14.8 L %
(20.5-51.1)
Potassium 3.0 L mmol/L
(3.5-5.1)
BUN 18 H mg/dl
(7-17)
Glucose 120 H mg/dl
(70-99)
12/01/24 14:02
12/01/24 14:02
Hypokalemia, Very slight Dehydration. Glucose nonfasting
Vital Signs
Initial and Last Documented VS:
Initial Vital Signs
Temp Pulse Resp BP Pulse Ox
98.3 F 72 16 101/61 98
12/01/24 13:51 12/01/24 13:51 12/01/24 13:51 12/01/24 13:51 12/01/24 13:51
Last Documented Vital Signs
Temp Pulse Resp BP Pulse Ox
97.5 F 80 12 140/64 99
12/01/24 16:40 12/01/24 22:22 12/01/24 22:22 12/01/24 22:22 12/01/24 21:30
MDM/Problems Addressed
Differential Diagnosis Includes:
Colitis, Constipation
MDM/Problems Addressed:
This is a 79 year old female that comes in with c/o diarrhea. States that she has diarrhea 13/06. States that there is some left sided abd discomfort on exam.
Will check labs and get CT of the abd and pelvis. Will give IV fluids and potassium.
Back into see patient. Explained that his CT scan is negative for any acute process. Explained to patient that she can use Miralax to help add fiber to her diet and increase her water intake to 8-8oz glasse daily. Patient to stay away form milk and
milk products. Chicken, rice and potatoes are easily digested. Patient to follow up with the family doctor. Return with any concerns.
Chronic conditions affecting care:
spastic colon
Acute Exacerbation and/or Progression of Chronic Illness:
Spastic colon
*Radiology
Radiology exam reviewed: radiology read reviewed (CT- No definite cause for acute abominal pain identified. Normal appendix. No calcified gallstones. No bowel obstruction or bowel wall thickening. No obstructive urolithiasis. No free fluid nor free
air. )
*Pulse Oximetry
Patient hypoxic: no
*EKG
Interpreted by ED Provider?: NA
Rate: EKG- N/A
*Residential Leasing Manager Interpretation
Rate: Residential Leasing Manager- N/A
*Critical Care Note
Total Time (30-74mins, 75-104mins- exclusive of procedures): Not Applicable
ED Attending Note
-
Portions of this chart may have been created with voice recognition software.� Occasional wrong word or��sound alike� substitutions may have occurred due to the inherent limitations of voice recognition software.
Discharge Plan
Departure
Patient Disposition: Home (Routine Discharge)
Date of Disposition: 12/01/24
Time of Disposition: 23:02
Patient with high blood pressure during this ER visit?: Yes
Condition: Good
Covid-19: Not Applicable
Discharge Problem:
Diarrhea
Instructions: Diarrhea in teens and adults
Prescriptions:
No Action
primidone 50 mg Tablet
50 mg PO HS
gabapentin 300 mg Capsule
300 mg PO BID
midodrine 10 mg Tablet
10 mg PO TID
memantine 10 mg Tablet
10 mg PO BID
turmeric 400 mg Capsule
500 mg PO BID
risedronate 30 mg tablet
30 mg PO TU
therapeutic multivitamin Tablet
1 tab PO DAILY
budesonide 3 mg Capsule,Delayed,Extend.Release
3 mg PO TID
cholecalciferol (vitamin D3) [Vitamin D3] 25 mcg (1,000 unit) Tablet
25 mcg PO DAILY
cyanocobalamin (vitamin B-12) 3,000 mcg Lozenge
3,000 mcg SUBLINGUAL MOWEFR
loperamide 2 mg Capsule
2 mg PO BID Qty: 30 0RF
Referrals:
Maris Loza CRNP [Family Provider] - Follow up in 2-3 days
Activity Restrictions/Additional Instructions:
As discussed, your blood work shows that our potassium was a little low. You have been given potassium here. Your CT scan is normal. There is no sign of constipation. Please use Miralax to help increase the fiber in your diet. Please stay away form
Milk and milk products as this is hard for the gut to digest and will keep the diarrhea going. You must eat or your stool will remain liquid. Chicken, rice and potatoes are easily digested. Follow up with the family doctor and your Gi specialist for
further evaluation. IF YOU HAVE ANY OTHER CONCERNS PLEASE RETURN TO THE EMERGENCY ROOM.
Interventions
Interventions:
*Risk Screen - Suicide Last Done: 12/01/24 13:51
*General Assessment Last Done: 12/01/24 19:44
*Neglect/Abuse Screening Last Done: 12/01/24 13:51
*ED COVID-19 Vaccine History Last Done: 12/01/24 19:44
TM-Enfkce-[id number] Assessment Last Done: 12/01/24 17:39
Discharge Date and Time
Print Language: GREENLANDIC
[2024-12-01] MEDS: NSS 1000 IV (19:00)
[2024-12-01] MEDS: KLOR-CON 40 MEQ PO (19:40)
[2024-12-01] MEDS: OMNIPAQUE 50 ML PO (19:40)
== END 2024-12-01 23:34 | disposition home or self-care (01) ==
LOC: EMR 13:41
PROVIDERS: Emergency Medicine; EMERGENCY PHYSICIAN Emergency Medicine; FAMILY PHYSICIAN Nurse Practitioner Adult Health
DX: R19.7 Diarrhea, unspecified (principal); E86.0 Dehydration; E87.6 Hypokalemia; I10 Essential (primary) hypertension; F41.9 Anxiety disorder, unspecified; K58.9 Irritable bowel syndrome, unspecified; F03.A0 Unspecified dementia, mild, without behavioral disturbance, psychotic disturbance, mood disturbance, and anxiety; R25.1 Tremor, unspecified; Z87.891 Personal history of nicotine dependence; Z88.1 Allergy status to other antibiotic agents
CPT/HCPCS: 99284; 74177; 80053; 85025; Q9967

== ENCOUNTER 2024-12-28 06:29 | Day surgery (SDC) | payer MEDICARE, OTHER, SELFPAY | END 2024-12-28 13:30 | disposition home or self-care (01) | LOC: GI 06:29 | PROVIDERS: ATTENDING PHYSICIAN Internal Medicine Gastroenterology | DX: K52.9 Noninfective gastroenteritis and colitis, unspecified (principal); K62.89 Other specified diseases of anus and rectum; K57.30 Diverticulosis of large intestine without perforation or abscess without bleeding | CPT/HCPCS: 45331; 88305; 88313 ==

== ENCOUNTER 2025-04-17 15:45 | Emergency (ER) | payer MEDICARE, OTHER, SELFPAY ==
--- NOTE | 2025-04-17 18:31 | DOWNTIME ---
There was a [employer] Client Insurance Claims Specialist Downtime on 04/17/2025 from 1230 to 04/17/2025 at 1550. Downtime documentation of patient's care, including medication administrations, has been reconciled in the electronic record per guidelines. Refer to the
patient's paper chart under the miscellaneous tab to see printed paper medication records and downtime forms.
--- NOTE | 2025-04-17 18:39 | ED.GENMED ---
History of Present Illness
General
Chief Complaint: Chest Pain
Source: patient
Exam Limitations: none
Time Seen by Provider: 04/17/25 18:36
Nursing documentation reviewed up to this point in time: agreed with
History of Present Illness
History of Present Illness:
80-year-old female with history of HTN, anxiety presents for chest pain. states at 9:30 AM today she came out of the bedroom holding her chest saying she could not take a deep breath due to the chest pain. She was also shaking. She states
that this time her chest still feels heavy and it gets worse with a deep breath. No recollection of overuse or injury or fall. She has been playing pool volleyball for the past 2 weeks 2 times a week
Past History
Past History
ED Past Medical History: HTN, Psychiatric (Anxiety), Other (Mild dementia, Back pain, chronic tremors, Spastic colon) and Other (After)
ED Past Surgical History: None
Social History
Tobacco: Former smoker
Alcohol: Daily (1/2 glass white wine)
Personal:
Living: with family
Review of Systems
Review of Systems
Allergies reviewed?: Yes
Unable to obtain full review of systems at this time due to: dementia
Other source history: family ( at bedside)
All Other Systems: ROS reviewed and negative except as documented in HPI and ROS
Constitutional: Denies fever
Respiratory: Denies cough or trouble breathing (It hurts in her chest to take a deep breath)
Cardiac: Reports chest pain; Denies diaphoresis or palpitations
ABD/GI: Denies abdominal pain, nausea, vomiting, diarrhea or anorexia
: Denies dysuria, frequency or difficulty voiding
Musculoskeletal: Reports no symptoms
Skin: Reports no symptoms
Neurological: Reports no symptoms
Phy Exam
Physical Exam
Physical Exam:
GENERAL: No acute distress. A&Ox3.
CONSTITUTIONAL: Afebrile.
EYES: clear, conjunctivae normal
ENMT: moist mucus membranes, Pharynx nl
RESPIRATORY: Regular respirations, nonlabored, lungs clear.
CARDIOVASCULAR: Regular rate and rhythm, no murmurs, no rubs.
GI: Soft, nontender, normal BS
MUSCULOSKELETAL: Moves with ease. Well perfused.
SKIN: Warm, dry, pink
PSYCH: Normal mood and affect. Well kept, interactive and appropriate
NEUROLOGIC: Awake, alert and oriented. No focal neurological deficits
Scores
Heart Score for Chest Pain Patients
STEMI patient?: Not applicable
Course
Orders/Labs/Results
Orders:
Orders
04/17/25
Electrocardiogram (*1) Stat
Reason for Study: Chest Pain
Comment: DONE
04/17/25 18:03
Cardiac Monitoring- Treatment ONCE
IV Insert/Care/Rem.- Treatment PRN
O2 Therapy [RESP] Urgent
Titrate/Wean O2 to maintain O2 sat greater than (%): 90
Special Instructions: Maintain sats >/=90%
Pulse Ox/spot Check [RESP] Urgent
Quantity: 1
Special Instructions: ON ROOM AIR
04/17/25 18:18
Basic Metabolic Panel Urgent
Complete Blood Count/With Diff Urgent
Troponin I Urgent
04/17/25 18:49
CR Chest - 2 Views Urgent
Comment:
Reason For Exam: chest pain
Abnormal Lab Results
04/17/25
18:18
WBC 11.8 H 10^3/uL
(4.8-10.8)
RBC 3.37 L 10^6/uL
(4.20-5.40)
Hgb 11.6 L g/dL
(12.0-16.0)
Hct 33.7 L %
(37.0-47.0)
MCV 100.0 H fL
(81.0-99.0)
MCH 34.4 H pg
(27.0-31.0)
Absolute Neuts (auto) 9.7 H 10^3/uL
(1.4-6.5)
Absolute Lymphs (auto) 1.1 L 10^3/uL
(1.2-3.4)
Absolute Monos (auto) 1.0 H 10^3/uL
(0.1-0.6)
Neutrophils % 82.0 H %
(42.2-75.2)
Lymphocytes % 9.2 L %
(20.5-51.1)
Creatinine 0.5 L mg/dL
(0.6-1.0)
Glucose 119 H mg/dl
(70-99)
04/17/25 18:18
04/17/25 18:18
Vital Signs
Initial and Last Documented VS:
Initial Vital Signs
Pulse Resp Pulse Ox
73 18 98
04/17/25 18:23 04/17/25 18:23 04/17/25 18:23
Last Documented Vital Signs
Pulse Resp BP Pulse Ox
77 19 122/76 98
04/17/25 19:45 04/17/25 19:45 04/17/25 19:59 04/17/25 19:30
MDM/Problems Addressed
Differential Diagnosis Includes:
Musculoskeletal pain, PR, pleuritis
MDM/Problems Addressed:
80-year-old female with history of HTN, anxiety presents for chest pain. states at 9:30 AM today she came out of the bedroom holding her chest saying she could not take a deep breath due to the chest pain. She was also shaking. She states
that this time her chest still feels heavy and it gets worse with a deep breath. No recollection of overuse or injury or fall. She has been playing pool volleyball for the past 2 weeks 2 times a week
Afebrile, NAD
EKG sinus with short NC, with mild elevation of ST in lateral leads
Temp 98.5 po
CBC with no clinically significant abnormality
CMP normal
Troponin normal
Chest x-ray NAD
Case discussed with Dr. Mccarthy, he reviewed the EKG and agrees nothing significant
Patient is stable for discharge.
Patient has a previously scheduled appointment with her glove cutter tomorrow
*EKG
EKG Intrepretation Date: 04/17/25
Interpretation: abnormal
Heart Rate: 71
Rate: normal
Rhythm: sinus
Atkinson: normal axis
Interval: short NC
QRS Pattern: normal QRS
Ischemia: non-specific ST changes
*Critical Care Note
Total Time (30-74mins, 75-104mins- exclusive of procedures): Not Applicable
ED Attending Note
-
Portions of this chart may have been created with voice recognition software.� Occasional wrong word or��sound alike� substitutions may have occurred due to the inherent limitations of voice recognition software.
Discharge Plan
Departure
Patient Disposition: Home (Routine Discharge)
Date of Disposition: 04/17/25
Time of Disposition: 19:49
Patient with high blood pressure during this ER visit?: No
Condition: Good
Discharge Problem:
Atypical chest pain
Instructions: Chest Pain That Is Not Caused by the Heart (DC), Costochondritis (DC)
Prescriptions:
No Action
primidone 50 mg Tablet
50 mg PO HS
gabapentin 300 mg Capsule
300 mg PO BID
midodrine 10 mg Tablet
10 mg PO TID
memantine 10 mg Tablet
10 mg PO BID
turmeric 400 mg Capsule
500 mg PO BID
risedronate 30 mg tablet
30 mg PO TU
therapeutic multivitamin Tablet
1 tab PO DAILY
budesonide 3 mg Capsule,Delayed,Extend.Release
3 mg PO TID
cholecalciferol (vitamin D3) [Vitamin D3] 25 mcg (1,000 unit) Tablet
25 mcg PO DAILY
cyanocobalamin (vitamin B-12) 3,000 mcg Lozenge
3,000 mcg SUBLINGUAL MOWEFR
loperamide 2 mg Capsule
2 mg PO BID Qty: 30 0RF
Referrals:
Maris Loza CRNP [Family Provider, General]
Activity Restrictions/Additional Instructions:
As we discussed, nothing worrisome in your workup here today.
You may have strained a chest wall muscle/ligament, you may have costochondritis which is an inflammation of the ligaments breastbone and ribs
Ibuprofen 400 mg, with food, up to 3 times a day as needed for pain.
Keep your appointment with your glove cutter tomorrow
Interventions
Interventions:
*Nursing Disposition Last Done: 04/17/25 20:27
ED- Cardiac Assessment Last Done: 04/17/25 20:00
Discharge Date and Time
Discharge Date/Time: 04/17/25 20:20
Print Language: ESTONIAN
[2025-04-17 18:49] LABS: Blood Urea Nitrogen 14 mg/dl (7-17); Calcium 9.3 mg/dl (8.4-10.2); Carbon Dioxide 29 mmol/L (22-30); Chloride 104 mmol/L (98-107); Glucose 119 mg/dl (70-99); Sodium 137 mmol/L (135-145); eGFR > 60.00
[2025-04-17 18:57] LABS: Troponin I < 0.012 ng/ml
[2025-04-17 18:59] LABS: % Basophils 0.3 % (0-2); % Eosinophils 0.2 % (0-6); % Immature Granulocytes 0.3 % (0-0.5); % Lymphocytes 9.2 % (20.5-51.1); Absolute Lymphocytes 1.1 10^3/uL (1.2-3.4); Absolute Neutrophils 9.7 10^3/uL (1.4-6.5); Hematocrit 33.7 % (37.0-47.0); Hemoglobin 11.6 g/dL (12.0-16.0); Mean Corp Hgb Conc. 34.4 g/dL (33.0-37.0); Mean Corpuscular Hgb 34.4 pg (27.0-31.0); Mean Platelet Volume 10.2 fL (7.4-10.4); Nucleated Red Blood Cells % 0 %; Platelet Count 329 10^3/uL (130-400); Red Blood Cell Count 3.37 10^6/uL (4.20-5.40); Red Cell Dist. Width 12.6 % (11.5-14.5); White Blood Cell Count 11.8 10^3/uL (4.8-10.8)
[2025-04-17 19:59] VITALS: BP 122/76
== END 2025-04-17 20:20 | disposition home or self-care (01) ==
LOC: EMR 15:45
PROVIDERS: Student in an Organized Health Care Education/Training Program; EMERGENCY PHYSICIAN Emergency Medicine; FAMILY PHYSICIAN Nurse Practitioner Adult Health
DX: R07.89 Other chest pain (principal); I10 Essential (primary) hypertension; F41.9 Anxiety disorder, unspecified; Z87.891 Personal history of nicotine dependence
CPT/HCPCS: 99285; 71046; 80048; 84484; 85025; 93005

== ENCOUNTER → 2025-04-18 14:39 | Outpatient (REF) | payer MEDICARE, OTHER, SELFPAY ==
[2025-04-18 15:58] LABS: D-Dimer 0.73 ug/mlFEU (0.00-0.50)
[2025-04-18 16:28] LABS: Erythrocyte Sed Rate 78 mm/hour (0-20)
== END ==
LOC: RAD 14:39
PROVIDERS: ATTENDING PHYSICIAN Student in an Organized Health Care Education/Training Program; FAMILY PHYSICIAN Nurse Practitioner Adult Health
DX: R60.0 Localized edema (principal); M79.662 Pain in left lower leg; R07.81 Pleurodynia
CPT/HCPCS: 36415; 85379; 85652; 86140; 93971

== ENCOUNTER → 2025-05-02 11:20 | Outpatient (REF) | payer MEDICARE, OTHER, SELFPAY | LOC: RCS 11:20 | PROVIDERS: ATTENDING PHYSICIAN Student in an Organized Health Care Education/Training Program; FAMILY PHYSICIAN Nurse Practitioner Adult Health | DX: I30.9 Acute pericarditis, unspecified (principal) | CPT/HCPCS: 93306 ==

== ENCOUNTER → 2025-09-13 09:06 | Outpatient (REF) | payer MEDICARE, OTHER, SELFPAY | LOC: MRI 3T 09:06 | PROVIDERS: ATTENDING PHYSICIAN Physical Medicine & Rehabilitation; FAMILY PHYSICIAN Nurse Practitioner Adult Health | DX: M54.16 Radiculopathy, lumbar region (principal) | CPT/HCPCS: 72148 ==